=== PATIENT | female | born 1960 | race Caucasian/White ===

== ENCOUNTER 2020-08-11 07:31 | Outpatient (REF) | payer OTHER, SELFPAY | END 2020-08-11 07:32 | disposition home or self-care (01) | LOC: HO.LAB 07:31 | PROVIDERS: Visit Provider Internal Medicine | DX: Z20.828 Contact with and (suspected) exposure to other viral communicable diseases (principal) | CPT/HCPCS: 87635 ==

== ENCOUNTER 2020-09-04 08:11 | Outpatient (REF) | payer OTHER, SELFPAY | END 2020-09-04 08:12 | disposition home or self-care (01) | LOC: HO.LAB 08:11 | PROVIDERS: PCP Internal Medicine; Referring Provider Internal Medicine; Visit Provider Obstetrics & Gynecology | DX: R87.610 Atypical squamous cells of undetermined significance on cytologic smear of cervix (ASC-US) (principal); R87.810 Cervical high risk human papillomavirus (HPV) DNA test positive; Z90.710 Acquired absence of both cervix and uterus | CPT/HCPCS: 88300; 88305 ==

== ENCOUNTER → 2020-09-21 11:25 | Outpatient (BNVA) | payer OTHER, SELFPAY | PROVIDERS: Visit Provider Obstetrics & Gynecology | DX: R87.610 Atypical squamous cells of undetermined significance on cytologic smear of cervix (ASC-US) (principal); R87.810 Cervical high risk human papillomavirus (HPV) DNA test positive; E78.00 Pure hypercholesterolemia, unspecified; F17.210 Nicotine dependence, cigarettes, uncomplicated; Z90.710 Acquired absence of both cervix and uterus | CPT/HCPCS: Q3014 ==

== ENCOUNTER 2020-10-14 08:45 | Outpatient (REF) | payer OTHER, SELFPAY | END 2020-10-14 08:46 | disposition home or self-care (01) | LOC: HO.LAB 08:45 | PROVIDERS: PCP Internal Medicine; Visit Provider Internal Medicine | DX: Z20.828 Contact with and (suspected) exposure to other viral communicable diseases (principal) | CPT/HCPCS: C9803; U0003 ==

== ENCOUNTER 2020-10-21 15:17 | Outpatient (REF) | payer OTHER, SELFPAY ==
--- NOTE | 2020-10-21 15:21 | MM_ITS ---
EXAMINATION: MM SCREENING DIGITAL BREAST TOMOSYNTHESIS, BILATERAL CLINICAL INFORMATION: Screening. Asymptomatic. The lifetime risk of breast cancer based on the Tyrer-Cuzick Model is 11%. COMPARISON: Outside mammography: 01/09/2018, 08/25/2016, 05/22/2015 ([facility]) TECHNIQUE: Digital breast tomosynthesis is performed in both the craniocaudal and mediolateral oblique views along with computer-aided detection (CAD). Synthesized 2D images are generated from the tomosynthesis. Additional exaggerated right CC and left MLO views are provided. FINDINGS: The breasts are heterogeneously dense, which may obscure small masses (ACR BI-RADS breast composition Category c). Parenchymal pattern is similar to prior outside exams. There is fine fibronodular parenchymal pattern. The heterogeneously dense tissue is predominantly in the upper outer quadrants. There is no interval mass, architectural abnormality, developing density, or abnormal calcifications. Again, there is a biopsy clip marker right breast upper outer quadrant in area of chronic stable round parenchymal asymmetry on MLO view. No significant changes. MM/MM tomosynthesis screening BI IMPRESSION: No significant changes from prior outside exams. ASSESSMENT: BI-RADS 2: Benign RECOMMENDATION: Routine annual mammography screening. This patient's information was entered into a reminder system with a target due date for their next mammogram.
== END 2020-10-21 15:18 | disposition home or self-care (01) ==
LOC: HO.MAMMO 15:17
PROVIDERS: PCP Internal Medicine; Visit Provider Advanced Practice Midwife
DX: Z12.31 Encounter for screening mammogram for malignant neoplasm of breast (principal)
CPT/HCPCS: 77063; 77067

== ENCOUNTER 2021-04-06 07:48 | Outpatient (REF) | payer OTHER, SELFPAY ==
[2021-04-06 12:07] LABS: Alanine Aminotransferase 16 U/L (0-31); Albumin Level 4.2 g/dL (3.5-5.0); Alkaline Phosphatase 61 U/L (39-117); Anion Gap 13 (12-20); Aspartate Amino Transferase 18 U/L (5-31); Bilirubin Total 0.5 mg/dL (0.0-1.0); Blood Urea Nitrogen 18 mg/dL (9-16); Calcium 9.2 mg/dL (8.4-10.2); Carbon Dioxide 27 mmol/L (22-29); Chloride 109 mmol/L (96-108); Cholesterol 183 mg/dL; Estimated Glomerular Filt Rate > 60; Glucose Fasting 90 mg/dL (60-99); HDL Cholesterol 56 mg/dL; LDL Cholesterol Calculated 105 mg/dl; Potassium 4.6 mmol/L (3.3-5.1); Sodium 144 mmol/L (135-145); Total Protein 6.2 g/dL (6.5-8.0); Triglycerides 114 mg/dL
== END 2021-04-06 07:49 | disposition home or self-care (01) ==
LOC: HO.HMGCLDS 07:48
PROVIDERS: PCP Internal Medicine; Visit Provider Internal Medicine
DX: M79.671 Pain in right foot (principal); M79.672 Pain in left foot; E78.9 Disorder of lipoprotein metabolism, unspecified; Z72.0 Tobacco use; Z71.6 Tobacco abuse counseling
CPT/HCPCS: 36415; 80053; 80061; 82550

== ENCOUNTER 2021-05-03 10:08 | Outpatient (REF) | payer OTHER, SELFPAY | END 2021-05-03 10:09 | disposition home or self-care (01) | LOC: HO.HMGCLDS 10:08 | PROVIDERS: PCP Internal Medicine; Visit Provider Internal Medicine | DX: R74.8 Abnormal levels of other serum enzymes (principal) | CPT/HCPCS: 36415; 82550 ==

== ENCOUNTER 2021-06-23 14:32 | Outpatient (REF) | payer OTHER, SELFPAY ==
[2021-07-01 18:35] LABS: HPV 16 RNA NOT DETECTED (NOT DETECTED); HPV mRNA E6/E7 rflx Detected (Not Detected)
== END 2021-06-23 14:33 | disposition home or self-care (01) ==
LOC: HO.LAB 14:32
PROVIDERS: Visit Provider Advanced Practice Midwife
DX: Z01.411 Encounter for gynecological examination (general) (routine) with abnormal findings (principal); Z11.51 Encounter for screening for human papillomavirus (HPV); Z72.0 Tobacco use
CPT/HCPCS: 87624; 87625; 88142

== ENCOUNTER 2021-08-09 10:16 | Outpatient (REF) | payer OTHER, SELFPAY | END 2021-08-09 10:17 | disposition home or self-care (01) | LOC: HO.LAB 10:16 | PROVIDERS: Visit Provider Obstetrics & Gynecology | DX: B97.7 Papillomavirus as the cause of diseases classified elsewhere (principal) | CPT/HCPCS: 57454; 88305 ==

== ENCOUNTER 2021-08-18 10:40 | Outpatient (REF) | payer OTHER, SELFPAY | END 2021-08-18 10:41 | disposition home or self-care (01) | LOC: HO.LAB 10:40 | PROVIDERS: Visit Provider Obstetrics & Gynecology | DX: B97.7 Papillomavirus as the cause of diseases classified elsewhere (principal) | CPT/HCPCS: 88305; 99212 ==

== ENCOUNTER → 2021-09-01 10:31 | Outpatient (BNVA) | payer OTHER, SELFPAY | PROVIDERS: Visit Provider Obstetrics & Gynecology | DX: B97.7 Papillomavirus as the cause of diseases classified elsewhere (principal); E78.00 Pure hypercholesterolemia, unspecified; F17.200 Nicotine dependence, unspecified, uncomplicated; Z90.710 Acquired absence of both cervix and uterus; Z80.41 Family history of malignant neoplasm of ovary; Z80.0 Family history of malignant neoplasm of digestive organs; Z88.1 Allergy status to other antibiotic agents; Z88.0 Allergy status to penicillin | CPT/HCPCS: 99212 ==

== ENCOUNTER 2021-09-08 06:58 | Outpatient (REF) | payer OTHER, SELFPAY ==
[2021-09-08 12:00] LABS: Alanine Aminotransferase 17 U/L (0-31); Albumin Level 4.1 g/dL (3.5-5.0); Alkaline Phosphatase 56 U/L (39-117); Anion Gap 12 (12-20); Aspartate Amino Transferase 15 U/L (5-31); Bilirubin Total 0.4 mg/dL (0.0-1.0); Blood Urea Nitrogen 11 mg/dL (9-16); Calcium 9.2 mg/dL (8.4-10.2); Carbon Dioxide 28 mmol/L (22-29); Chloride 107 mmol/L (96-108); Cholesterol 252 mg/dL; Estimated Glomerular Filt Rate > 60; Glucose Fasting 93 mg/dL (60-99); HDL Cholesterol 43 mg/dL; LDL Cholesterol Calculated 177 mg/dl; Potassium 4.6 mmol/L (3.3-5.1); Sodium 142 mmol/L (135-145); Total Protein 6.1 g/dL (6.5-8.0); Triglycerides 162 mg/dL
[2021-09-10 13:15] LABS: Lyme Abs Screen <0.90 index
== END 2021-09-08 06:59 | disposition home or self-care (01) ==
LOC: HO.HMGCLDS 06:58
PROVIDERS: PCP Internal Medicine; Visit Provider Internal Medicine
DX: E78.9 Disorder of lipoprotein metabolism, unspecified (principal); M79.10 Myalgia, unspecified site; T14.8XXA Other injury of unspecified body region, initial encounter; W57.XXXA Bitten or stung by nonvenomous insect and other nonvenomous arthropods, initial encounter
CPT/HCPCS: 36415; 80053; 80061; 82550; 86617; 86618

== ENCOUNTER 2022-02-23 10:34 | Outpatient (REF) | payer OTHER, SELFPAY ==
--- NOTE | ~2022-02-23 | MM_ITS ---
EXAMINATION: MM SCREENING DIGITAL BREAST TOMOSYNTHESIS, BILATERAL CLINICAL INFORMATION: Screening. Asymptomatic. The lifetime risk of breast cancer based on the Tyrer-Cuzick Model is 10%. COMPARISON: Mammography: 10/21/2020; outside mammography 12/22/2017, 08/25/2016 ([facility]). TECHNIQUE: Digital breast tomosynthesis is performed in both the craniocaudal and mediolateral oblique views along with computer-aided detection (CAD). Synthesized 2D images are generated from the tomosynthesis. Additional exaggerated left CC view is provided. FINDINGS: The breasts are heterogeneously dense, which may obscure small masses (ACR BI-RADS breast composition Category c). Findings fibronodular parenchymal pattern is again present. Distribution of fibroglandular tissue is similar to prior studies. No significant mass or developing density. There is a biopsy clip marker on the right posterior upper outer quadrant overlying area of stable parenchymal asymmetry with mixed fibroglandular and fatty attenuation. There are no abnormal calcifications. The axilla and skin contours are unremarkable. MM/MM tomosynthesis screening BI IMPRESSION: No mammographic evidence of malignancy. ASSESSMENT: BI-RADS 2: Benign RECOMMENDATION: Routine annual mammography screening. This patient's information was entered into a reminder system with a target due date for their next mammogram.
== END 2022-02-23 10:35 | disposition home or self-care (01) ==
LOC: HO.MAMMO 10:34
PROVIDERS: Visit Provider Internal Medicine
DX: Z12.31 Encounter for screening mammogram for malignant neoplasm of breast (principal)
CPT/HCPCS: 77063; 77067

== ENCOUNTER 2022-03-28 07:56 | Outpatient (REF) | payer OTHER, SELFPAY ==
[2022-03-28 11:51] LABS: Alanine Aminotransferase 16 U/L (0-31); Albumin Level 4.3 g/dL (3.5-5.0); Alkaline Phosphatase 61 U/L (39-117); Aspartate Amino Transferase 16 U/L (5-31); Bilirubin Direct 0.2 mg/dL (0.0-0.5); Bilirubin Total 0.8 mg/dL (0.0-1.0); Cholesterol 190 mg/dL; HDL Cholesterol 54 mg/dL; LDL Cholesterol Calculated 111 mg/dl; Total Protein 6.3 g/dL (6.5-8.0); Triglycerides 128 mg/dL
== END 2022-03-28 07:57 | disposition home or self-care (01) ==
LOC: HO.HMGCLDS 07:56
PROVIDERS: PCP Internal Medicine; Visit Provider Internal Medicine
DX: E78.9 Disorder of lipoprotein metabolism, unspecified (principal)
CPT/HCPCS: 36415; 80061; 80076

== ENCOUNTER 2022-05-05 19:07 | Emergency (ER) | payer OTHER, SELFPAY ==
--- NOTE | ~2022-05-05 | XR_ITS ---
EXAMINATION: XR HAND, RIGHT CLINICAL INFORMATION: Finger pain COMPARISON: None TECHNIQUE: PA, lateral, and oblique views of the right hand. FINDINGS: Minimally displaced transverse extra articular fracture through the index finger distal phalanx seen best on the lateral projection. No additional fracture or dislocation. Joint spaces are maintained throughout the hand and wrist. No significant osteophyte formation or appreciable erosions. XR/XR hand RT min 3V IMPRESSION: 1. Minimally displaced extra-articular fracture of the second distal phalanx.
[2022-05-05 20:19] VITALS: BP 147/96; PULSE 81; RESP 15; TEMP 36.1; O2SAT 97; BMI 25.3
--- NOTE | 2022-05-05 23:42 | ED.EXTPRO ---
HPI - Extremity Problem General Chief complaint: Extremity Injury, Upper Stated complaint: right finger fx sent from [facility] Time Seen by Provider: 05/05/22 19:52 Source: patient Mode of arrival: ambulatory Limitations: no limitations History of Present Illness HPI Narrative: 61-year-old female presenting to the emergency department with right 2nd digit intermittent numbness, swelling, bruising, pain with movement status post getting her finger slammed in a car door. Patient was seen at [facility] where she was told that she had an open fracture and had to come in to the emergency department for further evaluation. She tells me she has a small cut on her finger. Unsure of tetanus status. This injury occurred at approximately 16:30 MD Complaint: joint pain Related Data Previous Rx's Medication Instructions Recorded coenzyme Q10 100 mg capsule 100 mg PO DAILY 90 days #90 caps 04/06/22 nicotine 21 mg/24 hr daily 1 patch transdermal DAILY 28 days 04/06/22 transdermal patch (Nicoderm CQ) #28 ea rosuvastatin 5 mg tablet 5 mg PO DAILY 90 days #90 tabs 04/06/22 ketoconazole 2 % topical cream 1 appl topical DAILY 30 days #60 04/19/22 grams Allergies Allergy/AdvReac Type Severity Reaction Status Date / Time Penicillins [PENICILLINS] Allergy Intermediate TONGUE Verified 04/06/22 12:37 SWELLING penicillin V Allergy Unknown anaphylaxis Verified 04/06/22 12:37 Review of Systems Review of Systems: Constitutional : No Fever, No Chills, Cardiovascular : No Chest Pain, No SOB Respiratory : No Dyspnea Gastrointestinal : No abdominal pain Musculoskeletal : + Joint Swelling Skin : No rash, No skin laceration Neuro : No Weakness, No Numbness Psych : No SI/HI Yes all other systems are reviewed and are negative [facility] Past Medical History Attestation statement: The following information was validated with the patient. 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 Oriented X3.? No acute distress.? Head: Normocephalic, atraumatic, no step-offs or deformities Eyes: Pupils equal, round and reactive to light.? CVS: Normal heart rate and rhythm.? Pulses normal.? Respiratory: No respiratory distress.? Breath sounds normal.? Abdomen: Soft and nontender.? Skin: Skin warm and dry.? Normal skin color.? Normal skin turgor.? Extremities: No lower extremity edema.? No calf ttp. 5/5 strength to bilateral upper and lower extremities + ecchymosis noted to the right 2nd digit, small laceration superficial noted to the distal aspect of 2nd digit on the dorsal part. Capillary refill less than 2 seconds. Sensory intact however diminished to distal aspect of 2nd right digit. Normal strength to finger. Finger is swollen. 2+ radial pulses equal bilateral. No wrist drop. Back: No midline tenderness, no C-spine tenderness, full range of motion, no CVA tenderness bilaterally Neuro: Oriented X 3.? No motor deficit.? No sensory deficit. CN 2-12 intact Course Reevaluation(s) Reevaluation #1: X-ray of the hand with minimally displaced extra-articular fracture of the 2nd distal phalanx, patient was placed in a finger splint, given Toradol for pain. Was advised to follow-up with orthopedics and/or Dr. Lozano (Hand) I advised her to return with new or worsening symptoms. 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 I advised her that she should take this finger splint off at night, and put it back on during the day. I advised her to rest, ice, compress and elevate extremity. I also advised her to take ibuprofen every 6 hours, Tylenol every 4 as needed for pain or discomfort. Time: 23:47 MDM - Extremity (Nontraumatic) MDM Narrative Medical decision making narrative: [id number] 61-year-old female presenting with pain, swelling and bruising to the right 2nd digit after slamming her finger in a car door. Was seen at [facility] and was told that she had an open fracture needed further evaluation. Physical examination significant for ecchymosis noted to the right 2nd digit, small laceration superficial noted to the distal aspect of 2nd digit on the dorsal part. Capillary refill less than 2 seconds. Sensory intact however diminished to distal aspect of 2nd right digit. Normal strength to finger. Finger is swollen. 2+ radial pulses equal bilateral. No wrist drop. Likely fracture and/or dislocation. Plan at this time is x-ray Medical Records Attestation: I reviewed the patient's medical records. Lab Data Attestation: I reviewed the patient's lab results. Discharge Plan Discharge Clinical Impression: Fracture of phalanx of finger Patient Disposition: Home, Self-Care Instructions: Finger Fracture (ED) Additional Instructions: Take your medications as prescribed. If you were prescribed antibiotics today, it is important that you take your medication to their entirety, do not skip any doses, do not finish them early. Follow-up with your primary care provider this week. Return to the emergency department with new or worsening symptoms. Such as fevers, chills, chest pain, shortness of breath, nausea, vomiting, dizziness, headache, vision changes, lethargy In case of emergency call 911 Please take finger splint off at night. Rest, ice, compress and elevate this extremity. You can take ibuprofen every 6 hours, Tylenol every 4 as needed for pain or discomfort FINDINGS: Minimally displaced transverse extra articular fracture through the index finger distal phalanx seen best on the lateral projection. No additional fracture or dislocation. Joint spaces are maintained throughout the hand and wrist. No significant osteophyte formation or appreciable erosions. XR/XR hand RT min 3V IMPRESSION: 1. Minimally displaced extra-articular fracture of the second distal phalanx. Prescriptions: No Action ketoconazole 2 % cream 1 appl topical DAILY 30 Days Qty: 60 0RF coenzyme Q10 100 mg capsule 100 mg PO DAILY 90 Days Qty: 90 0RF rosuvastatin 5 mg tablet 5 mg PO DAILY 90 Days Qty: 90 0RF nicotine [Nicoderm CQ] 21 mg/24 hr patch 24 hour 1 patch transdermal DAILY 28 Days Qty: 28 0RF Referrals: [facility] [Provider Group] - 1 week Filomena Lozano MD [Physician] - 2 days Stand Alone Forms: Work/School Release
[2022-05-06] MEDS: Ketorolac Tromethamine 15 MG/ML VIAL 30 MG IM (00:15)
[2022-05-06] MEDS: Diphth,Pertus(ACell),Tet Adult 0.5 ML SYRINGE IM (00:16)
== END 2022-05-06 00:38 | disposition home or self-care (01) ==
PROVIDERS: Emergency Provider Emergency Medicine; PCP Internal Medicine
DX: S62.600A Fracture of unspecified phalanx of right index finger, initial encounter for closed fracture (principal); S60.410A Abrasion of right index finger, initial encounter; Y29.XXXA Contact with blunt object, undetermined intent, initial encounter; Y93.9 Activity, unspecified; Y92.810 Car as the place of occurrence of the external cause; Y99.9 Unspecified external cause status; F17.210 Nicotine dependence, cigarettes, uncomplicated; Z71.6 Tobacco abuse counseling; Z79.899 Other long term (current) drug therapy
CPT/HCPCS: 29130; 73130; 90471; 90715; 96372; 99283; 99284; J1885

== ENCOUNTER 2022-05-09 12:18 | Outpatient (REF) | payer OTHER, SELFPAY ==
--- NOTE | ~2022-05-09 | XR_ITS ---
EXAMINATION: XR HAND, RIGHT CLINICAL INFORMATION: Right hand pain. COMPARISON: 05/05/2022. TECHNIQUE: PA, lateral, and oblique views of the right hand. FINDINGS: There has been no change in alignment or appearance of intra-articular fracture involving the base of the 2nd distal phalanx. There remains soft tissue swelling. No radiopaque foreign body is seen. Small calcification about the ulnar aspect of the 3rd distal phalanx is seen likely representing sequela of previous injury. XR/XR hand RT min 3V IMPRESSION: No change in appearance of nondisplaced fracture base of the 2nd distal phalanx.
== END 2022-05-09 12:19 | disposition home or self-care (01) ==
LOC: HO.HOSX 12:18
PROVIDERS: Visit Provider Physician Assistant
DX: M79.641 Pain in right hand (principal); S62.600A Fracture of unspecified phalanx of right index finger, initial encounter for closed fracture; W22.09XA Striking against other stationary object, initial encounter; Y93.9 Activity, unspecified; Y92.89 Other specified places as the place of occurrence of the external cause; Y99.8 Other external cause status
CPT/HCPCS: 73130; 99202

== ENCOUNTER → 2022-05-23 10:39 | Outpatient (BNVA) | payer OTHER, SELFPAY | PROVIDERS: PCP Internal Medicine; Visit Provider Physician Assistant | DX: M77.12 Lateral epicondylitis, left elbow (principal) | CPT/HCPCS: 20551; 99212; J1020 ==

== ENCOUNTER 2022-08-30 11:27 | Outpatient (REF) | payer OTHER, SELFPAY ==
[2022-09-07 06:12] LABS: HPV 16 RNA NOT DETECTED (NOT DETECTED); HPV mRNA E6/E7 rflx Detected (Not Detected)
== END 2022-08-30 11:28 | disposition home or self-care (01) ==
LOC: HO.LNP 11:27
PROVIDERS: Visit Provider Advanced Practice Midwife
DX: Z01.419 Encounter for gynecological examination (general) (routine) without abnormal findings (principal); Z20.2 Contact with and (suspected) exposure to infections with a predominantly sexual mode of transmission
CPT/HCPCS: 86704; 86780; 86803; 87389; 87491; 87591; 87624; 87625; 88142

== ENCOUNTER 2022-08-30 11:36 | Outpatient (REF) | payer OTHER, SELFPAY ==
[2022-08-30 17:10] LABS: CT PCR NOT DETECTED (Not Detect.); NG PCR NOT DETECTED (Not Detect.)
[2022-08-31 05:49] LABS: Syphilis Screen Nonreactive (Nonreactive)
[2022-08-31 05:56] LABS: HBc Num1 0.06 S/CO (0.00-0.79); HIV AB/AG Nonreactive (Nonreactive); HIV Num 1 0.06 S/CO (0.00-0.99); Hepatitis B Core Antibody Nonreactive (Nonreactive); ~Hepatitis C Antibody Nonreactive (Nonreactive)
== END 2022-08-30 11:37 | disposition home or self-care (01) ==
LOC: HO.LAB 11:36
PROVIDERS: PCP Internal Medicine; Visit Provider Advanced Practice Midwife
DX: Z13.89 Encounter for screening for other disorder (principal)
CPT/HCPCS: 86704; 86780; 86803; 87389; 87491; 87591

== ENCOUNTER 2022-12-08 08:27 | Outpatient (REF) | payer OTHER, SELFPAY ==
[2022-12-08 12:10] LABS: Alanine Aminotransferase 20 U/L (0-31); Albumin Level 4.2 g/dL (3.5-5.0); Alkaline Phosphatase 57 U/L (39-117); Anion Gap 13 (12-20); Aspartate Amino Transferase 15 U/L (5-31); Bilirubin Total 0.6 mg/dL (0.0-1.0); Blood Urea Nitrogen 15 mg/dL (9-16); Calcium 9.3 mg/dL (8.4-10.2); Carbon Dioxide 26 mmol/L (22-29); Chloride 110 mmol/L (96-108); Cholesterol 191 mg/dL; Estimated Glomerular Filt Rate > 60; Glucose Fasting 93 mg/dL (60-99); HDL Cholesterol 56 mg/dL; LDL Cholesterol Calculated 110 mg/dl; Potassium 4.4 mmol/L (3.3-5.1); Sodium 145 mmol/L (135-145); Total Protein 6.2 g/dL (6.5-8.0); Triglycerides 127 mg/dL
== END 2022-12-08 08:28 | disposition home or self-care (01) ==
LOC: HO.HMGCLDS 08:27
PROVIDERS: PCP Internal Medicine; Visit Provider Internal Medicine
DX: E78.9 Disorder of lipoprotein metabolism, unspecified (principal); M79.10 Myalgia, unspecified site; F17.200 Nicotine dependence, unspecified, uncomplicated; Z71.6 Tobacco abuse counseling
CPT/HCPCS: 36415; 80053; 80061; 82550

== ENCOUNTER 2022-12-15 11:17 | Outpatient (REF) | payer OTHER, SELFPAY | END 2022-12-15 11:18 | disposition home or self-care (01) | LOC: HO.LNP 11:17 | PROVIDERS: PCP Internal Medicine; Visit Provider Obstetrics & Gynecology | DX: R87.610 Atypical squamous cells of undetermined significance on cytologic smear of cervix (ASC-US) (principal); R87.810 Cervical high risk human papillomavirus (HPV) DNA test positive | CPT/HCPCS: 57454; 88305 ==

== ENCOUNTER → 2022-12-29 14:08 | Outpatient (BNVA) | payer OTHER, SELFPAY | PROVIDERS: Visit Provider Obstetrics & Gynecology | DX: R87.610 Atypical squamous cells of undetermined significance on cytologic smear of cervix (ASC-US) (principal); R87.810 Cervical high risk human papillomavirus (HPV) DNA test positive | CPT/HCPCS: 99212 ==

== ENCOUNTER 2023-02-28 10:33 | Outpatient (REF) | payer OTHER, SELFPAY ==
--- NOTE | ~2023-02-28 | MM_ITS ---
EXAMINATION: MM SCREENING DIGITAL BREAST TOMOSYNTHESIS, BILATERAL CLINICAL INFORMATION: Screening. Asymptomatic. The lifetime risk of breast cancer based on the Tyrer-Cuzick Model is 10%. COMPARISON: Mammography: 02/23/2022, 10/21/2020, outside exam 12/22/2017 ([facility]) TECHNIQUE: Digital breast tomosynthesis is performed in both the craniocaudal and mediolateral oblique views along with computer-aided detection (CAD). Synthesized 2D images are generated from the tomosynthesis. FINDINGS: The breasts are heterogeneously dense, which may obscure small masses (ACR BI-RADS breast composition Category c). Breast tissue composition borders on average fibroglandular. Scattered parenchymal asymmetries in fibronodular parenchymal pattern is similar to prior exams. No developing density or architectural abnormality. There are no significant masses, abnormal calcifications, or other abnormalities. There is a biopsy clip marker again seen posterior upper outer right breast. The axilla are unremarkable. MM/MM tomosynthesis screening BI IMPRESSION: No mammographic evidence of malignancy. ASSESSMENT: BI-RADS 2: Benign RECOMMENDATION: Routine annual mammography screening. This patient's information was entered into a reminder system with a target due date for their next mammogram.
== END 2023-02-28 10:34 | disposition home or self-care (01) ==
LOC: HO.MAMMO 10:33
PROVIDERS: PCP Internal Medicine; Visit Provider Advanced Practice Midwife
DX: Z12.31 Encounter for screening mammogram for malignant neoplasm of breast (principal)
CPT/HCPCS: 77063; 77067

== ENCOUNTER 2023-04-21 08:53 | Outpatient (REF) | payer OTHER, SELFPAY ==
[2023-04-21 12:15] LABS: Alanine Aminotransferase 18 U/L (0-31); Albumin Level 4.2 g/dL (3.5-5.0); Alkaline Phosphatase 63 U/L (39-117); Anion Gap 13 (12-20); Aspartate Amino Transferase 19 U/L (5-31); Bilirubin Total 0.8 mg/dL (0.0-1.0); Blood Urea Nitrogen 16 mg/dL (9-16); Calcium 9.7 mg/dL (8.4-10.2); Carbon Dioxide 25 mmol/L (22-29); Chloride 110 mmol/L (96-108); Estimated Glomerular Filt Rate > 60; Glucose Random 95 mg/dL (60-115); Potassium 4.5 mmol/L (3.3-5.1); Sodium 143 mmol/L (135-145); Total Protein 6.6 g/dL (6.5-8.0)
[2023-04-21 12:34] LABS: Vitamin B12 264 pg/mL (200-900)
[2023-04-22 09:14] LABS: LDL Cholesterol Direct 88 mg/dL (<100)
== END 2023-04-21 08:54 | disposition home or self-care (01) ==
LOC: HO.HMGCLDS 08:53
PROVIDERS: PCP Internal Medicine; Visit Provider Internal Medicine
DX: Z00.01 Encounter for general adult medical examination with abnormal findings (principal); E78.9 Disorder of lipoprotein metabolism, unspecified; F33.9 Major depressive disorder, recurrent, unspecified; Z72.0 Tobacco use
CPT/HCPCS: 36415; 80053; 82550; 82607; 83721

== ENCOUNTER 2023-08-14 11:12 | Outpatient (AMB) | payer OTHER, SELFPAY ==
--- NOTE | 2023-08-14 11:16 | A.OFFVIS_ITS ---
Intake Vital Signs 08/14/23 11:18 Height 5 ft 3 in Weight 145 lb BMI 25.7 BP 137/64 Blood Pressure Location Lt brachial Position Sitting Pulse 75 Intake Visit Reasons: Colonoscopy Screening Intake Note: Patient 3rd pre colonoscopy screening, last 2 was in [place], [place] Patient cc: constant abdominal pain with constipation. Denies any other GI issues. 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 Accompanied by: Self / Same As Patient Allergies penicillin V Allergy (Unknown, Verified 08/14/23 11:16) anaphylaxis Medication List - Last Reconciled 08/14/23 by Tayler Romano PA-C bisacodyl (Dulcolax (bisacodyl)) 20 mg (4 x 5 mg) PO ONCE 1 day calcium polycarbophil (Fiber Laxative (calcium polycarbophil)) 1,250 mg (2 x 625 mg) PO DAILY 30 days coenzyme Q10 100 mg PO DAILY 90 days cyanocobalamin (vitamin B-12) 1,000 mcg PO DAILY 90 days docusate sodium (Colace) 200 mg (2 x 100 mg) PO BEDTIME PRN polyethylene glycol 3350 (Miralax) 238 grams PO ONCE PRN 1 day polyethylene glycol 3350 (Miralax) 17 grams PO DAILY 30 days rosuvastatin 5 mg PO DAILY 90 days HPI HPI Comments History of Present Illness Details A 62 y/o female family history colon cancer- sister in her late 50s- She smokes tob/ Mild pelvic/abdominal tenderness with constipation-she has been seen by fuel assembler she has upcoming appointment for repeat annual exam Bowels seem a bit copnstipated- She has a history of UTIs, No urinary symptoms No respiratory- or cardiac No nausea, vomiting, hematemesis, hematochezia fever or chills PFSH Medical History High cholesterol Surgical History H/O: hysterectomy Family History Maternal Aunt Breast CA Paternal Grandmother Ovarian ca Sister Colon cancer, Onset Age: 59 Other Mental health disorder Substance use disorder Social History Household Members: None Housing: House Alcohol intake: current Alcohol intake frequency: a few times a week Patient Tobacco Use Status: Current everyday Tobacco user Cigarette Packs Per Day: 1 Years Smoked: 40 e-Cigarette/Vaping Use: Never Used service: No Current occupational status: employed 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 Current occupational exposures/hazards: No Sexual orientation: Straight/Heterosexual Gender identity: Female Cognitive needs: No Hearing needs: No Vision needs: Yes Review of Systems Const All systems reviewed & are unremarkable except as noted in HPI and below Card Denies chest pain and Denies dyspnea Resp Denies dyspnea GI Denies abdominal pain, Reports bloating, Reports constipation, Denies nausea and Denies vomiting Reports no additional complaints, Denies difficulty voiding, Denies dysuria and Denies urinary urgency Physical Exam Vital Signs: Last Vital Signs Pulse 75 08/14/23 11:18 BP 137/64 08/14/23 11:18 BMI result Body Mass Index 25.7 Const General: cooperative, healthy appearing, comfortable and no acute distress Orientation/consciousness: patient oriented x3 Limitations: no limitations Eyes Sclerae: sclerae normal Resp Effort & Inspection: normal respiratory effort and able to speak in complete sentences Auscultation: clear to auscultation bilaterally, no rales, no rhonchi and no wheezes Cardio Rate: regular rate Rhythm: regular rhythm Heart sounds: S1 normal heart sound present and S2 normal heart sound present GI Palpation (GI): Soft to palpation and nontender Auscultation: normal bowel sounds Skin General skin exam: no rashes or lesions noted Neuro General: patient oriented x3 Extrem General: Yes full ROM Psych Appearance: grossly normal and well kempt Mental Status: mental status grossly normal Speech and movement: Normal speech and movement present and Clear speech present Affect: normal affect Attitude: cooperative Thought process: Normal thought process present Thought content: Normal thought content present Insight: Good insight present (Psych) Judgement: Good judgement present (Psych) Assessment & Plan Assessment & Plan (1) Family history of colon cancer: Code(s): Z80.0 - Family history of malignant neoplasm of digestive organs Plan: colon labs urine u/s (2) Abdominal pain: Comment: vague resolved after BM Code(s): R10.9 - Unspecified abdominal pain Plan Colonoscopy MiraLax Gatorade prep Will update labs Abdominal ultrasound-assess liver and gallbladder (normal liver enzymes) Consistent bowel regimen Maintain high-fiber diet Orders: Orders Colonoscopy - GI Use Only Today Z80.0 - Family history of malignant neoplasm of digestive organs Comprehensive Met. Panel Today K58.9 - Irritable bowel syndrome without diarrhea Thyroid Stimulating Hormone Today R19.8 - Other specified symptoms and signs involving the digestive system and abdomen UA and rflx microscopic Today R10.9 - Unspecified abdominal pain US abdomen complete Today R10.9 - Unspecified abdominal pain Complete Blood Count Auto Diff Today R10.9 - Unspecified abdominal pain, Z80.0 - Family history of malignant neoplasm of digestive organs Medications: New calcium polycarbophil (Fiber Laxative (calcium polycarbophil)) 1,250 mg (2 x 625 mg) PO DAILY 30 days 60 tabs 3RF docusate sodium (Colace) 200 mg (2 x 100 mg) PO BEDTIME PRN 60 caps 5RF constipation bisacodyl (Dulcolax (bisacodyl)) Day before procedure, prep day Take 4 tablets by mouth upon awakening followed by large glass of water 20 mg (4 x 5 mg) PO ONCE 1 day 4 tabs 0RF colonoscopy prep Z12.11 - Encounter for screening for malignant neoplasm of colon polyethylene glycol 3350 (Miralax) Take as directed by mouth the day before your procedure. 238 grams PO ONCE 1 day PRN 238 grams 0RF laxative effect polyethylene glycol 3350 (Miralax) 17 grams PO DAILY 30 days 510 grams 6RF Patient Instructions: A 62 y/o F family history colon cancer -vague periumbilical discomfort (as described) relieved after BM Colonoscopy MiraLax Gatorade prep Will update labs Abdominal ultrasound-assess liver and gallbladder (normal liver enzymes) Consistent bowel regimen Maintain high-fiber diet Coding Level of Care Code New Pt Level 3 (19135) Diagnoses Family history of colon cancer Z80.0 Abdominal pain R10.9 Time Spent (min) 30
[2023-08-14 11:18] VITALS: BP 137/64; PULSE 75; BMI 25.7
== END 2023-08-14 12:59 | disposition home or self-care (01) ==
PROVIDERS: PCP Internal Medicine; Visit Provider Physician Assistant
DX: Z80.0 Family history of malignant neoplasm of digestive organs (principal); R10.9 Unspecified abdominal pain
CPT/HCPCS: 99203

== ENCOUNTER → 2023-08-14 11:12 | Outpatient (BNVA) | payer OTHER, SELFPAY | PROVIDERS: PCP Internal Medicine; Visit Provider Physician Assistant ==

== ENCOUNTER 2023-09-28 09:39 | Outpatient (REF) | payer OTHER, SELFPAY ==
[2023-10-05 02:38] LABS: HPV 16 RNA NOT DETECTED (NOT DETECTED); HPV mRNA E6/E7 rflx Detected (Not Detected)
== END 2023-09-28 09:40 | disposition home or self-care (01) ==
LOC: HO.LNP 09:39
PROVIDERS: PCP Internal Medicine; Visit Provider Advanced Practice Midwife
DX: Z01.419 Encounter for gynecological examination (general) (routine) without abnormal findings (principal); Z11.51 Encounter for screening for human papillomavirus (HPV)
CPT/HCPCS: 87624; 87625; 88142

== ENCOUNTER 2023-09-28 09:39 | Outpatient (AMB) | payer OTHER, SELFPAY ==
--- NOTE | 2023-09-28 09:41 | MHC.OFFVIS ---
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 She is doing well with no concerns. Attempting to eat a healthy diet with calcium and vitamin D and stays active with exercise. Currently not sexually active. Denies any vaginal dryness or irritation. Hx ASCUS/HPV+. Last mammogram; 02/2023. Colonoscopy is being booked. Denies any family history of breast, ovarian or colon cancer. [facility] Medical History (Updated 09/28/23 @ 09:47 by RANDY Marie) Major depression, recurrent High cholesterol Surgical History H/O: hysterectomy Family History (Updated 09/28/23 @ 09:48 by RANDY Marie) Maternal Aunt Breast CA Paternal Grandmother Ovarian ca Sister Colon cancer, Onset Age: 59 Sister Lung cancer Other Mental health disorder Substance use disorder Social History Household Members: None Housing: House Alcohol intake: current Alcohol intake frequency: a few times a week Patient Tobacco Use Status: Current everyday Tobacco user Cigarette Packs Per Day: 1 Years Smoked: 40 e-Cigarette/Vaping Use: Never Used service: No Current occupational status: employed 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 Current occupational exposures/hazards: No Sexual orientation: Straight/Heterosexual Gender identity: Female Cognitive needs: No Hearing needs: No Vision needs: Yes Female Reproductive History Menstrual Menopause type: surgical Total pregnancies: 2 Number of Living Children: 0 Ab induced: 2 Date of last pap smear: 08/30/22 (ascus +hpv 12/15 colpo) History of abnormal pap smear: Yes (06/11 ascus +hpv / colpo 07/13 +hpv 08/12 colpo/ecc) Date of Mammogram: 02/28/23 ([facility] 2) Review of Systems Const All systems reviewed & are unremarkable except as noted in HPI and below Reports as per HPI Eyes Reports no additional complaints ENT Reports no additional complaints Card Reports no additional complaints Resp Reports no additional complaints GI Reports as per HPI and Reports no additional complaints Reports as per HPI Musc Reports no additional complaints Skin/Breast Reports as per HPI Neuro Reports no additional complaints Psych Reports no additional complaints Endo Reports no additional complaints Ángel/Lymph Reports no additional complaints Aller/Immun Reports no additional complaints Physical Exam Vital Signs: Last Vital Signs BP 110/68 09/28/23 09:43 BMI result Body Mass Index 26.0 Const General: cooperative, healthy appearing, no acute distress, well developed and alert Orientation/consciousness: patient oriented x3 HEENT Head: Yes normal to inspection Eyes General: appearance normal, both eyes and all related structures Neck Neck: Yes normal visual inspection Thyroid: Thyroid normal Chest Chest palpation & inspection: normal inspection of the chest and other (no puckering, dimpling, peau de orange, retraction, discharge, masses) Breast/axilla inspection: normal inspection of the breasts Breast/axilla palpation: normal palpation of the breasts Resp Effort & Inspection: normal respiratory effort GI Inspection: Yes normal to inspection Palpation (GI): Soft to palpation Rectal Exam - Female: deferred General: Yes bladder normal to palpation External Female Exam: normal external appearance and normal appearance of the urethra Speculum Exam - Vagina: normal appearance of the vagina, normal palpation and normal vaginal discharge Speculum Exam - Cervix: normal appearance of the cervix and normal palpation Bimanual exam- vagina & uterus: normal bimanual exam, normal palpation, uterine size normal, bladder normal to palpation, normal palpation and non-tender Bimanual Exam- Adnexa, other: no masses Skin General skin exam: no rashes or lesions noted Rashes: no rashes Neuro General: patient oriented x3 Cognition (Neuro): normal cognition Extrem General: Yes normal to inspection Psych Attitude: cooperative Thought process: Normal thought process present Assessment & Plan Assessment & Plan (1) Encounter for well woman exam with routine gynecological exam: Code(s): Z01.419 - Encounter for gynecological examination (general) (routine) without abnormal findings Plan Discussed: Current recommendations for pap smears per ASCCP guidelines. Breast awareness, periodic self breast exams and yearly mammogram. Maintain a healthy lifestyle, well balanced diet including Calcium 1,200 mg and Vitamin D 600 IU daily, and routine exercise. Use of condoms for STI if indicated. Discussed HPV. Contact the office with any postmenopausal bleeding. All of her questions and concerns were addressed to the best of my ability. RTO in 1 year for annual industrial green systems designer exam. Orders: Orders MM tomosynthesis screening BI Today Z12.31 - Encounter for screening mammogram for malignant neoplasm of breast Coding Level of Care Code Est Pt Prev Care 40-64y(82388) Diagnoses Encounter for well woman exam with routine gynecological exam Z01.419
[2023-09-28 09:43] VITALS: BP 110/68; BMI 26.0
== END 2023-09-28 10:07 | disposition home or self-care (01) ==
PROVIDERS: PCP Internal Medicine; Visit Provider Advanced Practice Midwife
DX: Z01.419 Encounter for gynecological examination (general) (routine) without abnormal findings (principal)
CPT/HCPCS: 99396

== ENCOUNTER 2023-12-28 10:37 | Outpatient (AMB) | payer OTHER, SELFPAY ==
--- NOTE | 2023-12-28 12:10 | MHC.OFFWIV ---
Intake Vital Signs 12/28/23 12:11 Weight 147 lb BP 128/80 Blood Pressure Location Rt brachial Position Sitting Pulse 61 Pulse Source Pulse Oximeter Temp 98 F Temp Source Oral Pulse Oximetry (%) 94 Oxygen Delivery Method Room Air Intake Visit Reasons: EST/sinus pressure (lobby) Intake Note: Patient here for sinus infection that started end of October which has not improved or worsened. Patient Tobacco Use Status: Current everyday Tobacco user Accompanied by: Self / Same As Patient Allergies penicillin V Allergy (Unknown, Verified 12/28/23 12:12) anaphylaxis Do you need a note to return to daycare/school/sports/work: No HPI EST/sinus pressure (lobby) HPI Details This is a 63-year-old female patient who presents today with a nearly 2 month history of sinus pressure. States that she had COVID back in October, and though recovered from that, she had persistent sinus pressure and nasal congestion. She has been using Advil sinus [id number], nasal spray, and a Neti pot at home without significant relief. She continues to have facial pressure and headaches. Denies any fever or chills. Denies any respiratory symptoms, shortness of breath, cough, or GI symptoms. [facility] Medical History Major depression, recurrent High cholesterol Surgical History H/O: hysterectomy Family History Maternal Aunt Breast CA Paternal Grandmother Ovarian ca Sister Colon cancer, Onset Age: 59 Sister Lung cancer Other Mental health disorder Substance use disorder Social History Household Members: None Housing: House Alcohol intake: current Alcohol intake frequency: a few times a week Patient Tobacco Use Status: Current everyday Tobacco user Cigarette Packs Per Day: 1 Years Smoked: 40 e-Cigarette/Vaping Use: Never Used service: No Current occupational status: employed 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 Current occupational exposures/hazards: No Sexual orientation: Straight/Heterosexual Gender identity: Female Cognitive needs: No Hearing needs: No Vision needs: Yes Review of Systems Const All systems reviewed & are unremarkable except as noted in HPI and below Physical Exam Vital Signs: Last Vital Signs Temp 98 F 12/28/23 12:11 Pulse 61 12/28/23 12:11 BP 128/80 12/28/23 12:11 Pulse Ox 94 12/28/23 12:11 Oxygen Delivery Method Room Air 12/28/23 12:11 Const General: cooperative, comfortable and no acute distress Nutritional Appearance: average body habitus HEENT Head: Yes normal to inspection and Yes normocephalic Ears: hearing grossly normal bilaterally and external ears normal General nose exam: Normal external nose present and Nasal discharge present mucoid Face and sinus: Yes sinus tenderness (maxillary and frontal) Mouth: Normal oral and palatal mucosa present Throat: Yes posterior oropharynx normal Neck Neck: Yes no lymphadenopathy Resp Effort & Inspection: normal respiratory effort and able to speak in complete sentences Auscultation: clear to auscultation bilaterally Cardio Palpation: normal PMI Rate: regular rate Rhythm: regular rhythm Skin General skin exam: no rashes or lesions noted Extrem General: Yes capillary refill normal and Yes no clubbing, cyanosis or edema Psych Appearance: grossly normal Mental Status: mental status grossly normal Speech and movement: Normal speech and movement present Assessment & Plan Assessment & Plan (1) Acute sinusitis: Code(s): J01.90 - Acute sinusitis, unspecified Qualifiers: Sinusitis location: maxillary Recurrence: non-recurrent Qualified Code(s): J01.00 - Acute maxillary sinusitis, unspecified Plan: Will start on azithromycin for nearly 2 month history of sinusitis. We reviewed indications, use, possible side effects of medication. She may continue to utilize conservative measures with Advil, nasal spray, and Neti pot as needed. If she does not improve with treatment, or if symptoms worsen/new symptoms develop, she can certainly return to the clinic for further evaluation. She verbalizes understanding and agrees to plan. Medications: New azithromycin For 250 mg dose pack: take 500 mg today (day 1), then 250 mg for 4 days (days 2-5) PO 6 tabs 0RF J01.90 - Acute sinusitis, unspecified Coding Level of Care Code Est Pt Level 3 (36106) Diagnoses Acute non-recurrent maxillary sinusitis J01.00 Sinusitis location: maxillary Recurrence: non-recurrent
[2023-12-28 12:11] VITALS: BP 128/80; PULSE 61; TEMP 36.6; O2SAT 94
== END 2023-12-28 12:45 | disposition home or self-care (01) ==
PROVIDERS: PCP Internal Medicine; Visit Provider Nurse Practitioner Family
DX: J01.00 Acute maxillary sinusitis, unspecified (principal)
CPT/HCPCS: 99213

== ENCOUNTER 2024-03-04 09:54 | Outpatient (AMB) | payer OTHER, SELFPAY ==
--- NOTE | 2024-03-04 09:57 | A.OFFVIS_ITS ---
Vital Signs 03/04/24 10:03 Height 5 ft 3 in Weight 145 lb 8.081 oz BMI 25.8 BP 116/74 Intake Visit Reasons: Colposcopy Civil Rights Investigator Required: No Information Interpreted: non-clinical & clinical Office Services Associate: Office Services Associate Present (Lexi Villar RANDY) Accompanied by: Self / Same As Patient Allergies penicillin V Allergy (Unknown, Verified 03/04/24 10:04) anaphylaxis Post menopausal: Yes HPI Comments Details: Presenting referred from Gianna Carlson can not see him in regarding Pap smear negative/HPV E6/E7 positive The patient has following abnormal Paps over the last few years: 09/11 ascus HPV E6/E7 positive colpo negative ECC no endocervical tissue 07/13 Pap negative/HPV E6/E7 positive colpo negative, ECC no endocervical tissue 09/13 ascus/HPV E6/E7 positive, colpo biopsy negative, ECC negative 10/14 Pap smear negative/HPV E6 E7 positive PFSH Medical History HPV in female Major depression, recurrent High cholesterol Surgical History H/O: hysterectomy Family History Maternal Aunt Breast CA Paternal Grandmother Ovarian ca Sister Colon cancer, Onset Age: 59 Sister Lung cancer Other Mental health disorder Substance use disorder Social History Household Members: None Housing: House Alcohol intake: current Alcohol intake frequency: a few times a week Patient Tobacco Use Status: Current everyday Tobacco user Cigarette Packs Per Day: 1 Years Smoked: 40 e-Cigarette/Vaping Use: Never Used service: No Current occupational status: employed 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 Current occupational exposures/hazards: No Sexual orientation: Straight/Heterosexual Gender identity: Female Cognitive needs: No Hearing needs: No Vision needs: Yes Review of Systems Const All systems reviewed & are unremarkable except as noted in HPI and below Reports as per HPI and Reports no additional complaints GI Reports no additional complaints Reports no additional complaints Physical Exam Vital Signs: Last Vital Signs BP 116/74 03/04/24 10:03 BMI result Body Mass Index 25.8 Assessment & Plan Assessment & Plan (1) HPV in female: Comment: 09/11 ascus HPV E6/E7 positive colpo negative ECC no endocervical tissue 07/13 Pap negative/HPV E6/E7 positive colpo negative, ECC no endocervical tissue 09/13 ascus/HPV E6/E7 positive, colpo biopsy negative, ECC negative 10/14 Pap smear negative/HPV E6 E7 positive Code(s): B97.7 - Papillomavirus as the cause of diseases classified elsewhere Category: Medical Plan: Discussed with the patient the result of her Pap smear/HPV E6/E7 positive, its significance, risk of progression, persistence, and regression. the false positive/negative rate of a Pap smear as a screening test in detecting cervical cancer and the indication for a diagnostic test -colposcopy, biopsy, endocervical curettage. Instructions given the patient to schedule colposcopy/biopsy/ECC in the coming 2 weeks. The patient verbalized understanding and agreed with the plan, all questions answered. Coding Level of Care Code Est Pt Level 3 (32155) Diagnoses HPV in female B97.7
[2024-03-04 10:03] VITALS: BP 116/74; BMI 25.8
== END 2024-03-04 10:24 | disposition home or self-care (01) ==
PROVIDERS: PCP Internal Medicine; Visit Provider Obstetrics & Gynecology
DX: R87.810 Cervical high risk human papillomavirus (HPV) DNA test positive (principal)
CPT/HCPCS: 99213

== ENCOUNTER → 2024-03-04 09:54 | Outpatient (BNVA) | payer OTHER, SELFPAY | PROVIDERS: PCP Internal Medicine; Visit Provider Obstetrics & Gynecology | DX: R87.810 Cervical high risk human papillomavirus (HPV) DNA test positive (principal) | CPT/HCPCS: 99212 ==

== ENCOUNTER 2024-03-07 11:06 | Outpatient (REF) | payer OTHER, SELFPAY ==
--- NOTE | ~2024-03-07 | MM_ITS ---
EXAMINATION: MM SCREENING DIGITAL BREAST TOMOSYNTHESIS, BILATERAL CLINICAL INFORMATION: Screening. Asymptomatic. COMPARISON: Mammography: This study is compared with prior exams dating back to 2019. TECHNIQUE: Digital breast tomosynthesis is performed in both the craniocaudal and mediolateral oblique views along with computer-aided detection (CAD). Synthesized 2D images are generated from the tomosynthesis. FINDINGS: The breasts are heterogeneously dense, which may obscure small masses (ACR BI-RADS breast composition Category c). There are no significant masses, abnormal calcifications, or other abnormalities. There is a biopsy tissue marker in the upper outer quadrant of the right breast associated with a focal asymmetry. MM/MM tomosynthesis screening BI IMPRESSION: No mammographic evidence of malignancy. ASSESSMENT: BI-RADS BI-RADS 2 - Benign Findings RECOMMENDATION: Routine annual mammography screening. 1 year F/U This examination should not preclude the clinical evaluation of a suspicious palpable abnormality. This patient's information was entered into a reminder system with a target due date for their next mammogram.
== END 2024-03-07 11:07 | disposition home or self-care (01) ==
LOC: HO.MAMMO 11:06
PROVIDERS: PCP Internal Medicine; Referring Provider Advanced Practice Midwife; Visit Provider Internal Medicine
DX: Z12.31 Encounter for screening mammogram for malignant neoplasm of breast (principal)
CPT/HCPCS: 77063; 77067

== ENCOUNTER → 2024-03-07 11:30 | Outpatient (BNV) | payer OTHER, SELFPAY | PROVIDERS: PCP Internal Medicine; Referring Provider Advanced Practice Midwife; Visit Provider Radiology Diagnostic Radiology | DX: Z12.31 Encounter for screening mammogram for malignant neoplasm of breast (principal) | CPT/HCPCS: 77063; 77067 ==

== ENCOUNTER 2024-04-01 09:49 | Day surgery (SDC) | payer OTHER, SELFPAY ==
--- NOTE | 2024-03-29 10:19 | HO.ANESPROP2 ---
Documented by User: Carina Grant NP 03/29/24 10:19 HPI - Anesthesia Eval Consult details Narrative: 63yo F for Colonoscopy PMFSH Active Problems Active Problems: All Active Problems Major depression, recurrent (Acute) Abdominal pain (Acute) Family history of colon cancer (Acute) Colon cancer screening (Acute) Encounter for general adult medical examination with abnormal findings (Acute) Alcohol cessation counseling (Acute) ASCUS with positive high risk HPV cervical (Acute) Lateral epicondylitis, left elbow (Acute) Fracture of distal phalanx of index finger (Acute) Left tennis elbow (Acute) Nicotine dependence (Acute) Muscle ache (Acute) Tick bite (Acute) HPV in female (Acute) Elevated CPK (Acute) Tobacco abuse counseling (Acute) Tobacco abuse (Acute) Lipid disorder (Acute) Bilateral foot pain (Acute) Past Medical History Medical History HPV in female Major depression, recurrent High cholesterol Family History Family History Maternal Aunt Breast CA Paternal Grandmother Ovarian ca Sister Colon cancer, Onset Age: 59 Sister Lung cancer Other Mental health disorder Substance use disorder Surgical History Surgical History H/O: hysterectomy Social History Social History Household Members: None Housing: House Alcohol intake: current Alcohol intake frequency: a few times a week Patient Tobacco Use Status: Current everyday Tobacco user Cigarette Packs Per Day: 1 Years Smoked: 40 e-Cigarette/Vaping Use: Never Used Advance Directives: No Advance Directives Information Provided: Yes service: No Current occupational status: employed 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 Current occupational exposures/hazards: No Sexual orientation: Straight/Heterosexual Gender identity: Female Cognitive needs: No Hearing needs: No Vision needs: Yes Meds Allergies Allergy/AdvReac Type Severity Reaction Status Date / Time penicillin V Allergy Unknown anaphylaxis Verified 03/04/24 10:04 Assessment and Plan Assessment Anesthesia Assessment: Chart Reviewed Documented by User: Brianne Gutierrez MD 04/01/24 10:06 [facility] Past Medical History Medical History HPV in female Major depression, recurrent High cholesterol Family History Family History Maternal Aunt Breast CA Paternal Grandmother Ovarian ca Sister Colon cancer, Onset Age: 59 Sister Lung cancer Other Mental health disorder Substance use disorder Family history of problems with anesthesia: No Surgical History Surgical History H/O: hysterectomy History of Problems with Anesthesia: No Social History Social History Household Members: None Housing: House Alcohol intake: current Alcohol intake frequency: a few times a week Patient Tobacco Use Status: Current everyday Tobacco user Cigarette Packs Per Day: 1 Years Smoked: 40 e-Cigarette/Vaping Use: Never Used Advance Directives: No Advance Directives Information Provided: Yes service: No Current occupational status: employed 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 Current occupational exposures/hazards: No Sexual orientation: Straight/Heterosexual Gender identity: Female Cognitive needs: No Hearing needs: No Vision needs: Yes Meds Allergies Allergy/AdvReac Type Severity Reaction Status Date / Time penicillin V Allergy Unknown anaphylaxis Verified 03/04/24 10:04 Exam Airway Mallampati Class: II TM Dist: >3cm Neck ROM: Full Heart: rrr Lungs: cta Assessment and Plan Assessment Anesthesia Assessment: Anesthesia Plan Discussed Final Anesthetic Review Family History of Problems with Anesthesia: No History of Problems with Anesthesia: No NPO: Yes ASA Class: II Final Preanesthetic Review: No Changes in Pt Med Stat, Meds/Allgs Chart Reviewed and Consent Obtained/Reviewed Patient Risk: Low Procedure Risk: Low Anesthetic Plan Anesthetic Plan: MAC: Disposition: Standard PACU
[2024-04-01 09:58] VITALS: BP 133/50; PULSE 78; RESP 16; TEMP 36.4; O2SAT 99; BMI 25.9
--- NOTE | 2024-04-01 10:03 | MHC.SHP ---
Pre-Procedural Eval Section A - 24 Hr Update-Section A only Date of Service: 04/01/24 The patient is an INPATIENT: No The patient has been examined within 24 hours of the surgical procedure. The History & Physical has been completed within 30 days and I have reviewed it.: No Section B - Complete if H&P > 30 days Chief Complaint: Encounter for screening for malignant neoplasm of Relevant Family History (Specify if Yes): Yes Relevant Social History: Tobacco Use Present Medications: see Short Stay Collaborative assessment Medical History: Significant History (High cholesterol) History of Previous Operations: Relevant previous surgery/procedure and date(s) (History of hysterectomy) Allergies: Allergies Allergy/AdvReac Type Severity Reaction Status Date / Time penicillin V Allergy Unknown anaphylaxis Verified 03/04/24 10:04 Review of Systems Sugical H&P ROS: Negative: Constitution, Cardiovascular, Respiratory and Gastrointestinal Exam Surgical H&P Exam: Normal: Heart, Normal: Lungs, Normal: Extremities and Normal: Abdomen Plan Diagnosis/Plan: Unchanged I have reviewed the history and physical and performed a pertinent physical examination on my patient. No changes have occurred unless specified. Time Spent With Patient Time: Total time managing care of this patient today ____ minutes.
[2024-04-01] MEDS: Lactated Ringers 1,000 ML 100 ML IVCONT (10:14)
--- NOTE | 2024-04-01 11:25 | HO.OPN-COLON ---
Colonoscopy Operative Note Operative Note Date of Service: 04/01/24 Narrative: COLONOSCOPY TILL CECUM WITH BIOPSIES AND SNARE POLYPECTOMY Pre-op diagnosis: Colon cancer screening, family history of colon cancer (sister at age 59 yrs) Post-op diagnosis:? Colon polyps, Diverticulosis, hemorrhoids Endoscopist:? Keith Thakkar MD Anesthesia:?MAC Consent: Indications for the procedure and potential complications of bleeding, perforation, reaction to medications and missed diagnosis were discussed with the patient and informed consent was obtained. Instrument: Olympus PCF H 190 L variable stiffness pediatric colonoscope Monitoring: Vital signs and clinical assessment, intermittent blood pressure monitoring, continuous EKG monitoring, Pulse oximetry and Carbon Dioxide monitoring were done throughout the procedure. Please see anesthesia flowsheet. Colon withdrawl time was 20 minutes. Procedure: The patient was placed in the left lateral decubitis position and pre-procedure medications were administered. After a digital rectal examination of the ano-rectum, the video colonoscope was inserted into the rectum and advanced through the colon to the cecum. The colonoscope was slowly withdrawn in a retrograde panoramic fashion and the colon mucosa was carefully examined including a retroflexed view of the rectum. Findings and interventions are described below. Procedure Difficulty: Colon was long and tortuous and there was some loop formation. There was narrowing in the sigmoid colon at 30 cm with a sharp turn which was navigated with some difficulty Findings: Terminal Ileum: Not evaluated Cecum: Normal Ascending Colon: Normal Transverse Colon: Normal Descending Colon: Moderate diverticulosis Sigmoid Colon: A 4-5 mm sessile polyp - removed with a cold snare. Severe diverticulosis with luminal narrowing at 30 cm Rectum: A 4-5 mm sessile polyp - removed with a cold biopsy Ano-rectum: Small internal hemorrhoids Colon preparation: Excellent. [place] Bowel Preparation Scale Right colon; 3 Transverse colon: 3 Left colon; 3 (0 = Unprepared colon segment with mucosa not seen due to solid stool that cannot be cleared. 1 = Portion of mucosa of the colon segment seen, but other areas of the colon segment not well seen due to staining, residual stool and/or opaque liquid. 2 = Minor amount of residual staining, small fragments of stool and/or opaque liquid, but mucosa of colon segment seen well. 3 = Entire mucosa of colon segment seen well with no residual staining, small fragments of stool or opaque liquid) Impression and Post Procedure Diagnosis: Colonoscopy Findings: Two small polyps were removed Moderate to severe diverticulosis seen in the left colon Small hemorrhoids on retroflexed exam. Plan: Pt has a FU appointment on 06/06/24 with DION Hurst. Repeat Colonoscopy in 5 years if polyps are adenomatous and due to positive family hx of colon cancer. Above findings were reviewed with the patient and relevant handouts were given and the discharge area.
[2024-04-01 11:26] VITALS: BP 104/54; PULSE 83; RESP 16; TEMP 36.2; O2SAT 95
[2024-04-01 11:41] VITALS: BP 123/67; PULSE 74; RESP 18; TEMP 37.1; O2SAT 99
== END 2024-04-01 11:57 | disposition home or self-care (01) ==
PROVIDERS: PCP Internal Medicine; Visit Provider Internal Medicine Gastroenterology
PROC: 0DJD8ZZ Inspection of Lower Intestinal Tract, Via Natural or Artificial Opening Endoscopic (ICD-10-PCS; CPT 45378; principal; 2024-04-01 11:00)
DX: Z12.11 Encounter for screening for malignant neoplasm of colon (principal); K63.5 Polyp of colon; K62.1 Rectal polyp; K57.30 Diverticulosis of large intestine without perforation or abscess without bleeding; K64.8 Other hemorrhoids; K56.2 Volvulus; Z80.0 Family history of malignant neoplasm of digestive organs; Z88.0 Allergy status to penicillin
CPT/HCPCS: 45385; 45380; 88305; J2704

== ENCOUNTER → 2024-04-01 09:49 | Outpatient (BNV) | payer OTHER, SELFPAY | PROVIDERS: PCP Internal Medicine; Visit Provider Internal Medicine Gastroenterology | DX: Z12.11 Encounter for screening for malignant neoplasm of colon (principal); Z80.0 Family history of malignant neoplasm of digestive organs; K63.5 Polyp of colon; K62.1 Rectal polyp; K57.90 Diverticulosis of intestine, part unspecified, without perforation or abscess without bleeding; K64.8 Other hemorrhoids | CPT/HCPCS: 45380; 45385 ==

== ENCOUNTER 2024-05-03 10:40 | Outpatient (AMB) | payer OTHER, SELFPAY ==
[2024-05-03 10:46] VITALS: BP 116/74; PULSE 82; O2SAT 97; BMI 25.5
--- NOTE | 2024-05-03 10:46 | MHC.PC.OV ---
Vital Signs 05/03/24 10:46 Height 5 ft 3 in Weight 144 lb BMI 25.5 BP 116/74 Blood Pressure Location Rt brachial Position Sitting Pulse 82 Pulse Source Pulse Oximeter Pulse Oximetry (%) 97 Oxygen Delivery Method Room Air Intake Visit Reasons: Medications Allergies penicillin V Allergy (Unknown, Verified 05/03/24 10:47) anaphylaxis Medication List - Last Reconciled 05/03/24 by Hannah Baires MD coenzyme Q10 100 mg PO DAILY 90 days cyanocobalamin (vitamin B-12) 1,000 mcg PO DAILY 90 days rosuvastatin 5 mg PO DAILY 90 days Tobacco use date assessed: 05/03/24 Dental Screening Dental Screen Date: 05/03/24 Did you have a dental visit in the last 12 months?: Yes Did you have a dental problem in the last 6 months where you did not have access to dental care?: No Was dental information given to patient?: Patient has dentist HPI Medications HPI Details Patient is 63-year-old female came in today for physical exam Mammogram is up-to-date Colonoscopy up-to-date Patient is established with [facility] Continued to smoke half a pack per day, patient is getting down gradually She has developed tinea pedis for that I have sent ketoconazole cream to be used at night for 1 month She is on small dose of statin refill sent Labs are needed today Follow-up 1 year [facility] Medical History HPV in female Major depression, recurrent High cholesterol Surgical History H/O: hysterectomy Family History Maternal Aunt Breast CA Paternal Grandmother Ovarian ca Sister Colon cancer, Onset Age: 59 Sister Lung cancer Other Mental health disorder Substance use disorder Social History Household Members: None Housing: House Alcohol intake: current Alcohol intake frequency: a few times a week Patient Tobacco Use Status: Tobacco use Unknown Cigarette Packs Per Day: 1 Cigarettes Per Day: 20.0 Years Smoked: 40 e-Cigarette/Vaping Use: Never Used service: No Current occupational status: employed 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 1. Little interest or pleasure in doing things: not at all 2. Feeling down, depressed, or hopeless: several days 3. Trouble falling or staying asleep, or sleeping too much: several days 4. Feeling tired or having little energy: not at all 5. Poor appetite or overeating: several days 6. Feeling bad about yourself - or that you are a failure or have let yourself or your family down: not at all 7. Trouble concentrating on things, such as reading the newspaper or watching television: not at all 8. Moving or speaking so slowly that other people could have noticed. Or the opposite - being so fidgety or restless that you have been moving around a lot more than usual: not at all 9. Thoughts that you would be better off or of hurting yourself in some way: not at all Total score: 3 Depression Screening Interpretation: Negative Depression Screening Done: Yes 88176 - PHQ-9 Billing: Yes Source: Developed by Drs. Delroy Enrique, Kalina Vicente, Lobo Garcia and colleagues, with an educational chey from [employer]. Thrive Questionnaire Date Thrive assessed: 05/03/24 I am a: Patient What is your living situation today?: I have a steady place to live Within the past 12 months, did the food you bought not last and you didn't have the money to get more?: Never true Within the past 12 months, did you worry whether your food would run out before you got money to buy more?: Never true Do you have trouble paying for medicines?: No Do you have trouble getting transportation to medical appointments?: No Do you have trouble paying your heating and electricity bill?: No Do you have trouble taking care of your child, family member or friend?: No Do you have trouble with day-to-day activities such as bathing, preparing meals, shopping, managing finances, etc.?: No Are you currently unemployed and looking for a job?: No Are you interested in more education?: No THRIVE Score: 0 AUDIT C Alcohol Use Questionnaire (AUDIT-C) 1. How often do you have a drink containing alcohol?: Never 3. How often do you have six or more drinks on one occasion?: Never Total Score: 0 Score Reviewed/Action Taken: Yes MUSTAPHA-7 AMB Questionnaire MUSTAPHA-7 Date MUSTAPHA - 7 assessed: 05/03/24 Feeling nervous, anxious, or on edge: 0 = Not at all Not being able to stop or control worryin = Not at all Worrying too much about different things: 0 = Not at all Trouble relaxin = Several days Being so restless that it is hard to sit still: 1 = Several days Becoming easily annoyed or irritable: 0 = Not at all Feeling afraid as if something awful might happen: 0 = Not at all Total MUSTAPHA-7 score (0-4 normal; 5-9 mild; 10-14 moderate; 15-21 severe): 2 Source: Developed by Drs. Delroy Enrique, Kalina Vicente, Lobo Garcia and colleagues, with an educational chey from [employer]. MUSTAPHA-7 Assessment Billing MUSTAPHA-7 Assessment Tool: MUSTAPHA-7 Assessment 79042 Review of Systems Const Denies chills, Denies fever(s) and Denies headache(s) Eyes Denies blurry vision ENT Denies headache(s), Denies nasal discharge, Denies nasal obstruction, Denies odynophagia and Denies sinus pain Card Denies chest pain at rest and Denies chest pain with activity Resp Denies cough and Denies hemoptysis GI Denies diarrhea, Denies odynophagia, Denies vomiting and Denies hematemesis Reports as per HPI Musc Denies abnormal gait Skin/Breast Reports as per HPI Neuro Denies Neuro-related abnormal movements, Denies Abnormal speech present, Denies abnormal gait, Denies headache(s) and Denies Sensory deficit (Neuro) Psych Denies mood swings and Denies paranoia Endo Reports as per HPI Ángel/Lymph Reports as per HPI Aller/Immun Reports as per HPI Physical exam (Primary Care) Vital Signs: Last Vital Signs Pulse 82 05/03/24 10:46 BP 116/74 05/03/24 10:46 Pulse Ox 97 05/03/24 10:46 Oxygen Delivery Method Room Air 05/03/24 10:46 BMI result Body Mass Index 25.5 Tobacco/Smoking Status: Tobacco use Status Tobacco use date assessed 05/03/24 05/03/24 10:48 Patient Tobacco Use Status Tobacco use Unknown 05/03/24 10:48 e-Cigarette/Vaping Use Never Used 05/03/24 10:48 PHQ-9: PHQ-9 Score PHQ-9: Total score 3 05/03/24 10:49 Depression Screening Interpretation: Negative Thrive Assessment: Date of Thrive Assessment Date Thrive assessed 05/03/24 05/03/24 10:49 Const General: cooperative, comfortable and no acute distress Orientation/consciousness: patient oriented x3 HENMT Head: Yes normocephalic and Yes atraumatic Eyes General: appearance normal, both eyes and all related structures Pupils: Equal, round and reactive pupils present EOM: EOMs intact bilaterally Neck Neck: Yes supple and No lymphadenopathy Thyroid: Thyroid normal Lymphatic: no lymphadenopathy noted Resp Effort & Inspection: normal respiratory effort and able to speak in complete sentences Auscultation: clear to auscultation bilaterally Cardio Heart sounds: S1 normal heart sound present and S2 normal heart sound present GI Palpation (GI): Soft to palpation and nontender Auscultation: normal bowel sounds General: Yes no CVA tenderness Back/Spine/Pelvis Back: no CVA tenderness Skin General skin exam: elasticity normal and turgor normal Neuro General: patient oriented x3 and gait normal Cranial nerves: Yes Equal, round and reactive pupils present Speech: No Abnormal speech present Sensory Exam: No Sensory deficit (Neuro) Coordination: tandem gait normal and Romberg test negative Extrem General: Yes normal exam except as noted and No edema Assessment and Plan Assessment & Plan (1) Encounter for general adult medical examination with abnormal findings: Code(s): Z00.01 - Encounter for general adult medical examination with abnormal findings (2) Lipid disorder: Code(s): E78.9 - Disorder of lipoprotein metabolism, unspecified (3) Tobacco abuse: Code(s): Z72.0 - Tobacco use (4) Tinea pedis: Code(s): B35.3 - Tinea pedis Qualifiers: Laterality: left Qualified Code(s): B35.3 - Tinea pedis Plan Patient is 63-year-old female came in today for physical exam Mammogram is up-to-date Colonoscopy up-to-date Patient is established with [facility] Continued to smoke half a pack per day, patient is getting down gradually She has developed tinea pedis for that I have sent ketoconazole cream to be used at night for 1 month She is on small dose of statin refill sent Labs are needed today Breast exam declined Follow-up 1 year Orders: Orders Complete Blood Count Auto Diff Today E78.9 - Disorder of lipoprotein metabolism, unspecified, Z00.01 - Encounter for general adult medical examination with abnormal findings, Z72.0 - Tobacco use Creatine Kinase Total Today E78.9 - Disorder of lipoprotein metabolism, unspecified, Z00.01 - Encounter for general adult medical examination with abnormal findings, Z72.0 - Tobacco use Vitamin B12 Today Z00.01 - Encounter for general adult medical examination with abnormal findings Vitamin D 25-OH (D2 and D3) Today Z00.01 - Encounter for general adult medical examination with abnormal findings Comprehensive Met. Panel Today E78.9 - Disorder of lipoprotein metabolism, unspecified, Z00.01 - Encounter for general adult medical examination with abnormal findings, Z72.0 - Tobacco use LDL Cholesterol Direct Today E78.9 - Disorder of lipoprotein metabolism, unspecified, Z00.01 - Encounter for general adult medical examination with abnormal findings, Z72.0 - Tobacco use Medications: New ketoconazole 2% 1 appl topical DAILY 60 grams 1RF Foot rash Refilled rosuvastatin 5 mg PO DAILY 90 tabs 3RF 90 days coenzyme Q10 100 mg PO DAILY 90 caps 3RF 90 days Coding Level of Care Code Est Pt Level 3 (75956) Est Pt Prev Care 40-64y(46039) Diagnoses Encounter for general adult medical examination with abnormal findings Z00.01 Lipid disorder E78.9 Tobacco abuse Z72.0 Tinea pedis of left foot B35.3 Laterality: left Additional Codes MUSTAPHA-7 Assessment Billing - MUSTAPHA-7 Assessment Tool: MUSTAPHA-7 Assessment 80221 ([id number])
== END 2024-05-03 10:58 | disposition home or self-care (01) ==
PROVIDERS: PCP Internal Medicine; Visit Provider Internal Medicine
DX: Z00.01 Encounter for general adult medical examination with abnormal findings (principal); E78.9 Disorder of lipoprotein metabolism, unspecified; F17.210 Nicotine dependence, cigarettes, uncomplicated; B35.3 Tinea pedis
CPT/HCPCS: 99213; 99396

== ENCOUNTER 2024-05-06 07:43 | Outpatient (REF) | payer OTHER, SELFPAY ==
[2024-05-06 10:06] LABS: MANUAL DIFF FLAG NO
[2024-05-06 10:16] LABS: Basophils Absolute Auto 0.1 X10*3/uL (0.0-0.2); Basophils Percent Auto 0.8 % (0-2); Eosinophils Absolute Auto 0.3 X10*3/uL (0.0-0.4); Eosinophils Percent Auto 4.3 % (0-4); Hematocrit 42.6 % (37.0-47.0); Hemoglobin 14.2 g/dl (12.0-16.0); Imm Gran Abs Auto 0.02 X10*3/uL (0.00-0.03); Imm Gran Pct Auto 0.3 % (0.0-0.4); Lymphocytes Absolute Auto 2.7 X10*3/uL (1.2-4.9); Mean Corpuscular HGB Conc 33.3 g/dl (31.0-35.0); Mean Corpuscular Volume 95.9 fL (80.0-98.0); Mean Platelet Volume 11.1 fL (9.4-12.3); Monocytes Absolute Auto 0.5 X10*3/uL (0.1-1.2); Monocytes Percent Auto 5.9 % (2-11); Neutrophils Absolute Auto 4.1 x10*3/uL (2.0-8.3); Neutrophils Percent Auto 53.7 % (45-73); Platelet Count 222 X10*3/uL (160-400); Red Blood Count 4.44 X10*6/uL (4.20-5.50); Red Cell Distribution Width 12.8 % (11.0-16.0); White Blood Count 7.7 X10*3/uL (4.8-10.8)
[2024-05-06 10:48] LABS: Alanine Aminotransferase 17 U/L (0-31); Albumin Level 4.2 g/dL (3.5-5.0); Alkaline Phosphatase 62 U/L (39-117); Anion Gap 12 (12-20); Aspartate Amino Transferase 19 U/L (5-31); Bilirubin Total 0.5 mg/dL (0.0-1.0); Blood Urea Nitrogen 12 mg/dL (9-16); Calcium 8.9 mg/dL (8.4-10.2); Carbon Dioxide 26 mmol/L (22-29); Chloride 109 mmol/L (96-108); Estimated Glomerular Filt Rate > 60; Glucose Random 104 mg/dL (60-115); Potassium 4.3 mmol/L (3.3-5.1); Sodium 143 mmol/L (135-145); Total Protein 6.3 g/dL (6.5-8.0)
[2024-05-06 12:19] LABS: Vitamin B12 1285 pg/mL (200-900)
[2024-05-07 12:09] LABS: LDL Cholesterol Direct 114 mg/dL (<100)
[2024-05-10 18:03] LABS: Vitamin D 25-OH, D2 <4 ng/mL; Vitamin D 25-OH, D3 37 ng/mL; Vitamin D 25-OH, Total 37 ng/mL (30-100)
== END 2024-05-06 07:44 | disposition home or self-care (01) ==
LOC: HO.HMGCLDS 07:43
PROVIDERS: PCP Internal Medicine; Visit Provider Internal Medicine
DX: Z00.01 Encounter for general adult medical examination with abnormal findings (principal); E78.9 Disorder of lipoprotein metabolism, unspecified; Z72.0 Tobacco use
CPT/HCPCS: 36415; 80053; 82306; 82550; 82607; 83721; 85025

== ENCOUNTER 2024-06-27 12:01 | Outpatient (AMB) | payer OTHER, SELFPAY ==
--- NOTE | 2024-06-27 12:24 | A.OFFVIS_ITS ---
Vital Signs 06/27/24 12:27 Height 5 ft 3 in Weight 143 lb 4.807 oz BMI 25.4 BP 116/72 Intake Visit Reasons: Colposcopy Ethernet Network Architect Required: No Information Interpreted: non-clinical & clinical Corn Lab Technician: Corn Lab Technician Present (Lexi PADILLA) Accompanied by: Self / Same As Patient Allergies penicillin V Allergy (Unknown, Verified 06/27/24 12:31) anaphylaxis Post menopausal: Yes HPI Comments Details: Presenting for colposcopy regarding Pap smear done in 10/14 was negative, HPV E6/E7 positive PFSH Medical History HPV in female Major depression, recurrent High cholesterol Surgical History Hx of colonoscopy H/O: hysterectomy Family History Maternal Aunt Breast CA Paternal Grandmother Ovarian ca Sister Colon cancer, Onset Age: 59 Sister Lung cancer Other Mental health disorder Substance use disorder Social History Household Members: None Housing: House Alcohol intake: current Alcohol intake frequency: a few times a week Patient Tobacco Use Status: Tobacco use Unknown Cigarette Packs Per Day: 1 Cigarettes Per Day: 20.0 Years Smoked: 40 e-Cigarette/Vaping Use: Never Used service: No Current occupational status: employed 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 We thoroughly discussed the procedure itself, including its details, alternatives, and all associated risks. This included but not limited to the following complications such as bleeding, infection, and injury to the vagina, bladder, and vessels, as well as the potential need for transfusion with all its associated risks. Subsequently, the patient sign the consent. Pap smear result: Negative Pap/HPV E6/E7 positive Procedure: During the procedure, the following steps were performed: A speculum was inserted, and acetic acid was applied. Colposcopy was conducted, allowing visualization of the transformation zone. Acetowhite lesions were identified at the 6+9+12+3 o'clock position. Cervical biopsies were obtained from the 6+9+12+3 o'clock position, followed by an endocervical curettage (ECC). Vaginoscopy of the upper vagina revealed no evidence of aceto-white lesions. Hemostasis was achieved using Monsel solution, and the patient tolerated the procedure well. Post-Procedure Instructions: The patient was advised to promptly contact the office or the after hours answering service or go to the emergency room if experiencing a temperature exceeding 100.4?F, abdominal pain, nausea/vomiting, or bleeding. Additionally, the patient was instructed to abstain from vaginal intercourse and bathtub use. The patient confirmed understanding of these instructions. Discharge Instructions: The patient was instructed to schedule a follow-up appointment in 2 weeks for further evaluation and management. Please note that this note was generated using a voice recognition program, and errors may have occurred during legal transcriber. [id number] of cervix including upper vagina with biopsy and ECC Procedure code (CPT) selection complete Assessment & Plan Assessment & Plan (1) HPV in female: Comment: 09/11 ascus HPV E6/E7 positive colpo negative ECC no endocervical tissue 07/13 Pap negative/HPV E6/E7 positive colpo negative, ECC no endocervical tissue 09/13 ascus/HPV E6/E7 positive, colpo biopsy negative, ECC negative 10/14 Pap smear negative/HPV E6 E7 positive Code(s): B97.7 - Papillomavirus as the cause of diseases classified elsewhere Category: Medical Plan: Discussed with the patient the result of her pap negative/HPV positive, its sign ificance, risk of progression, persistence, and regression. the false positive/negative rate of a Pap smear as a screening test in detecting cervical cancer and the indication for a diagnostic test -colposcopy, biopsy, endocervical curettage. Colpo/biopsy/ECC done, see procedure note. The patient verbalized understanding and agreed with the plan, all questions answered. Orders: Orders AMB Colposcopy Today B97.7 - Papillomavirus as the cause of diseases classified elsewhere Coding Level of Care Code Procedure Only Diagnoses HPV in female B97.7 CPT Codes Colposcopy - CPT: 57595-Yrzaeqila of cervix including upper vagina with biopsy and ECC ([id number])
[2024-06-27 12:27] VITALS: BP 116/72; BMI 25.4
== END 2024-06-27 12:46 | disposition home or self-care (01) ==
PROVIDERS: PCP Internal Medicine; Visit Provider Obstetrics & Gynecology
DX: R87.810 Cervical high risk human papillomavirus (HPV) DNA test positive (principal)
CPT/HCPCS: 57454

== ENCOUNTER 2024-06-27 12:01 | Outpatient (REF) | payer OTHER, SELFPAY | END 2024-06-27 12:02 | disposition home or self-care (01) | LOC: HO.LNP 12:01 | PROVIDERS: PCP Internal Medicine; Visit Provider Obstetrics & Gynecology | DX: R87.810 Cervical high risk human papillomavirus (HPV) DNA test positive (principal) | CPT/HCPCS: 57454; 88305 ==

== ENCOUNTER 2024-08-21 14:05 | Outpatient (AMB) | payer OTHER, SELFPAY ==
[2024-08-21 14:10] VITALS: BP 114/70; BMI 25.3
--- NOTE | 2024-08-21 14:10 | A.OFFVIS_ITS ---
Vital Signs 08/21/24 14:10 Height 5 ft 3 in Weight 143 lb BMI 25.3 BP 114/70 Blood Pressure Location Lt brachial Position Sitting Intake Visit Reasons: Colpo Results Allergies penicillin V Allergy (Unknown, Verified 08/21/24 14:15) anaphylaxis HPI Comments Details: Presenting post colpo for follow-up. The patient is doing well with no complaints. The pathology showed the following: A. Endocervix, curettage: Squamous mucosa with focal reactive changes; negative for dysplasia; and rare detached endocervical glandular epithelial cells (may not be self pay representative of the endocervix. B. Cervix, 3:00, biopsy: Squamous mucosa; negative for dysplasia; no endocervical glandular component present. C. Cervix, 6:00, biopsy: Squamous mucosa; negative for dysplasia; no endocervical glandular component present. D. Cervix, 9:00, biopsy: Squamous mucosa; negative for dysplasia; no endocervical glandular component present. E. Cervix, 12:00, biopsy: Detached squamous epithelium; negative for dysplasia; no endocervical glandular component present. Comment: The patient's previous negative Pap test ([id number]) concurs with the current biopsy [facility] Medical History HPV in female Major depression, recurrent High cholesterol Surgical History Hx of colonoscopy H/O: hysterectomy Family History Maternal Aunt Breast CA Paternal Grandmother Ovarian ca Sister Colon cancer, Onset Age: 59 Sister Lung cancer Other Mental health disorder Substance use disorder Social History Household Members: None Housing: House Alcohol intake: current Alcohol intake frequency: a few times a week Patient Tobacco Use Status: Tobacco use Unknown Cigarette Packs Per Day: 1 Cigarettes Per Day: 20.0 Years Smoked: 40 e-Cigarette/Vaping Use: Never Used service: No Current occupational status: employed 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 Current occupational exposures/hazards: No Sexual orientation: Straight/Heterosexual Gender identity: Female Cognitive needs: No Hearing needs: No Vision needs: Yes Review of Systems Const All systems reviewed & are unremarkable except as noted in HPI and below Reports as per HPI and Reports no additional complaints GI Reports no additional complaints Reports no additional complaints Physical Exam Vital Signs: Last Vital Signs BP 114/70 08/21/24 14:10 BMI result Body Mass Index 25.3 Assessment & Plan Assessment & Plan (1) HPV in female: Comment: 09/11 ascus HPV E6/E7 positive colpo negative ECC no endocervical tissue 07/13 Pap negative/HPV E6/E7 positive colpo negative, ECC no endocervical tissue 09/13 ascus/HPV E6/E7 positive, colpo biopsy negative, ECC negative 10/14 Pap smear negative/HPV E6 E7 positive, colpo biopsy ECC negative Code(s): B97.7 - Papillomavirus as the cause of diseases classified elsewhere Category: Medical Plan: Discussed with the patient the pathology results of the colposcopy biopsies & endocervical curettage. Discussed with the patient the sensitivity specificity, positive and negative predictive value in detecting cervical cancer in addition discussed the regression, persistence and progression rates. Recommended co- testing in 12 months, if cytology and or HPV are abnormal will proceed was colposcopy biopsy and endocervical curettage,. Instructions given to the patient to schedule a co test appointment in 1 year from previous co testing. All questions answered the patient verbalized understanding. Coding Level of Care Code Est Pt Level 3 (11076) Diagnoses HPV in female B97.7
== END 2024-08-21 14:22 | disposition home or self-care (01) ==
LOC: HO.HWS 14:05
PROVIDERS: PCP Internal Medicine; Visit Provider Obstetrics & Gynecology
DX: R87.810 Cervical high risk human papillomavirus (HPV) DNA test positive (principal)
CPT/HCPCS: 99213

== ENCOUNTER → 2024-08-21 14:05 | Outpatient (BNVA) | payer OTHER, SELFPAY | PROVIDERS: PCP Internal Medicine; Visit Provider Obstetrics & Gynecology | DX: B97.7 Papillomavirus as the cause of diseases classified elsewhere (principal); Z71.2 Person consulting for explanation of examination or test findings | CPT/HCPCS: 99212 ==

== ENCOUNTER 2025-05-08 11:36 | Outpatient (REF) | payer OTHER, SELFPAY | END 2025-05-08 11:37 | disposition home or self-care (01) | LOC: HO.MAMMO 11:36 | PROVIDERS: PCP Internal Medicine; Visit Provider Internal Medicine | DX: Z12.31 Encounter for screening mammogram for malignant neoplasm of breast (principal) | CPT/HCPCS: 77063; 77067 ==

== ENCOUNTER → 2025-05-08 12:00 | Outpatient (BNV) | payer OTHER, SELFPAY | PROVIDERS: PCP Internal Medicine; Visit Provider Radiology Body Imaging | DX: Z12.31 Encounter for screening mammogram for malignant neoplasm of breast (principal) | CPT/HCPCS: 77063; 77067 ==

== ENCOUNTER 2025-05-16 13:15 | Outpatient (AMB) | payer OTHER, SELFPAY ==
--- OUTSIDE RECORDS SUMMARY | 2025-05-16 13:17 | XMS_ITS | Clinical Summary ---
Author Organization [facility] Address [address] [phone] Phone Care Team Providers Care Clinical Services Professional Name Role Phone Emir Quinones MD Primary Care Provider [phone] Medications atorvastatin calcium (ATORVASTATIN ORAL) Active Medication-Free Text Premarin Active Social History Tobacco Use Types Packs/Day Years Used Date Smoking Tobacco: Never Assessed Education Answer Date Recorded Are you interested in more education? Not on kaykay e 02/17/2023 Are you concerned about learning? Not on file 02/17/2023 No 02/17/2023 No 02/17/2023 Digital Access Answer Date Recorded No 03/20/2023 No 03/20/2023 No 03/20/2023 Reliable internet access at home? Not on file 03/20/2023 Device with a working camera? Not on file Comments Unknown Sex and Gender Information Value Date Recorded Sex Assigned at Not on file Legal Sex Female 9:48 PM EDT Gender Identity Not on file Sexual Orientation Not on file Last Filed Vital Signs Vital Sign Reading Time Taken Comments Blood Pressure 120/67 10/30/2015 1:45 AM EST Pulse 73 10/30/2015 1:45 AM EST Temperature - - Respiratory Rate - - Oxygen Saturation - - Inhaled Oxygen Concentration - - Weight 63.5 kg (140 lb) 10/30/2015 1:45 AM EST Height 158.8 cm (5' 2.5 ) 10/30/2015 1:45 AM EST Body Mass Index 25.2 10/30/2015 1:45 AM EST Plan of Treatment Health Maintenance Due Date Last Done Comments Adult Td,Tdap Booster 1960 LIPID PANEL 1960 DEPRESSION SCREENING 1972 HEPATITIS C SCREENING 1978 HIV ONE-TIME SCREENING (18-6 5 YEARS) 1978 PAP SMEAR 1981 MAMMOGRAM 2000 PNEUMOCOCCAL VACCINES (50+ years) (1 of 1 - PCV) 2010 COVID-19 VACCINE (4 - 2023-2 5 season) 2024 09/01/2021, 02/05/2021, 01/07/2021 RSV VACCINE (1 - 1-dose 75+ series) 2035 ZOSTER VACCINES Completed 04/16/2019, 01/30/2019 COLORECTAL CANCER SCREENING Completed HEPATITIS A VACCINES Aged Out No long er eligible based on patient's age to complete this topic HIB VACCINES Aged Out No longer eligi ble based on patient's age to complete this topic MENINGOCOCCAL VACCINES (ACWY) Aged Out No longer eligible based on patient's age to complete this topic MENINGOCOCCAL VACCINES (B) Aged Out N o longer eligible based on patient's age to complete this topic Medical Devices Not on file Insurance [facility] H[facility] POS [facility] [place] [address] [place] [address] [place] [address] [place] [address] [place] [address] [place] [address] [place] [address] [place] [address] [place] [address] [place] [place] [address] [place] [address] [place] [place] [address] [place] [address] HMO POS Care Teams Clinical Services Professional Relationship Specialty Start Date End Date Emir Quinones MD PCP - General 10/26/17 Additional Source Comments The information contained in this document represents components of the legal health record. It is not the complete legal health record.[facility]
[2025-05-16 13:24] VITALS: BP 124/80; PULSE 76; O2SAT 98; BMI 25.5
--- NOTE | 2025-05-16 13:24 | A.OFFPC_ITS ---
Vital Signs 05/16/25 13:24 Height 5 ft 3 in Weight 144 lb BMI 25.5 BP 124/80 Blood Pressure Location Lt brachial Position Sitting Pulse 76 Pulse Source Pulse Oximeter Pulse Oximetry (%) 98 Intake Visit Reasons: Annual PE Allergies penicillin V Allergy (Unknown, Verified 05/16/25 13:24) anaphylaxis Medication List - Last Reconciled 05/16/25 by Hannah Baires MD coenzyme Q10 100 mg PO DAILY 90 days cyanocobalamin (vitamin B-12) 1,000 mcg PO DAILY 90 days ketoconazole 2% 1 appl topical DAILY rosuvastatin 5 mg PO DAILY 90 days Tobacco use date assessed: 05/16/25 Fall risk assessment: No Falls in past year Last assessed Fall Risk: 05/16/25 Dental Screening Dental Screen Date: 05/16/25 Did you have a dental visit in the last 12 months?: Yes Did you have a dental problem in the last 6 months where you did not have access to dental care?: No Was dental information given to patient?: Patient has dentist HPI Annual PE HPI Details History of Present Illness - The patient is a 64-year-old female pr esenting for a physical examination and health maintenance visit. - The patient reports bilateral foot samantha n with symptoms described as burning and hurting, occurring for several years and progressively worsening. - The foot pain is described as severe a t times, impacting mobility, especially when transitioning from sitting to standing. No specific relief or aggravating factors were noted. - The patient has a history of tobacco u se, smoking one pack per day, with discussion of decreasing but no active cessation efforts. - The patient had a colonoscopy performe d in March of last year and a mammogram in April of this year. - She is aware of her positive HPV statu s and a previous high vitamin B12 level identified in last year's laboratory tests, which was attributed to supplement intake at the time. Medical History: - Tobacco use disorder - Positive human papillomavirus (HPV) st atus - History of elevated vitamin B12 levels Social History: - The patient smokes one pack of cigaret mario per day. Acknowledges awareness of smoking cessation resources but no current plans to quit. Family History: - No family history of osteoporosis. Health Maintenance - Mammogram was completed in April 2025. - Colonoscopy was performed in March 2024 . - The patient previously completed a ed ngles vaccine series (Zoster) in 2019. - Tetanus immunization is up to date. - There was a discussion about schedulin g a bone density study. - Rechecking of elevated vitamin B12 sta tus is planned. Medications - Rosuvastatin 5 mg for hypercholesterol emia Patient Instructions - Schedule and complete a lung scan. - Consider scheduling a nerve conduction study due to foot pain and burning sensations. - The patient may undergo a bone density test, especially considering smoking history. - Reassessment of blood vitamin B12 leve ls is advised. - The patient's positive HPV status was noted, and follow-up with gynecologic consultation was suggested. - The patient was advised of resources f or smoking cessation. Review of Systems - General: No fever no chills - Neurological: No headaches no dizzin ess - Ear nose throat: No sore throat no hearing difficulty no ear pain - Cardiovascular: No syncope, no chest pain, no palpitations - Gastrointestinal: No nausea vomiting or diarrhea - Endocrine: No polyuria polydipsia no heat intolerance - Genitourinary: No dysuria - Skin: No new complaints Physical Exam General: Cooperative, healthy appearing, comfortable, no acute distress Orientation: Patient oriented x3 Head: Normal to inspection Ears: Within normal limit visually Nose: Normal external nose present Face and sinus: Normal facial exam Eyes: Appearance normal, extraocular movement intact pupils reactive Neck: Normal visual inspection and supple, thyroid within normal limit Respiratory: Normal respiratory effort and able to speak in complete sentences. Clear to auscultation, no stridor Cardiovascular: S1 and S2 RRR GI: Normal to inspection. Soft to palpation and nontender Skin: Turgor normal, no acute findings Neuro: Patient oriented x3, motor sensory intact, balance intact, tandem pass Extremities: Normal to inspection, range of motion intact PFSH Medical History HPV in female Major depression, recurrent High cholesterol Surgical History Hx of colonoscopy H/O: hysterectomy Family History Maternal Aunt Breast CA Paternal Grandmother Ovarian ca Sister Colon cancer, Onset Age: 59 Sister Lung cancer Other Mental health disorder Substance use disorder Social History Household Members: None Housing: House Alcohol intake: current Alcohol intake frequency: a few times a week Patient Tobacco Use Status: Current everyday Tobacco user Tobacco use type: Cigarette Cigarette Packs Per Day: 1 Cigarettes Per Day: 20.0 Years Smoked: 40 e-Cigarette/Vaping Use: Never Used service: No Current occupational status: employed 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 1. Little interest or pleasure in doing things: not at all 2. Feeling down, depressed, or hopeless: not at all 3. Trouble falling or staying asleep, or sleeping too much: not at all 4. Feeling tired or having little energy: not at all 5. Poor appetite or overeating: not at all 6. Feeling bad about yourself - or that you are a failure or have let yourself or your family down: not at all 7. Trouble concentrating on things, such as reading the newspaper or watching television: not at all 8. Moving or speaking so slowly that other people could have noticed. Or the opposite - being so fidgety or restless that you have been moving around a lot more than usual: not at all 9. Thoughts that you would be better off or of hurting yourself in some way: not at all Total score: 0 Depression Screening Interpretation: Negative Depression Screening Done: Yes 17690 - PHQ-9 Billing: Yes Source: Developed by Drs. Delroy Enrique, Kalina Vicente, Lobo Garcia and colleagues, with an educational chey from [employer]. Thrive Questionnaire Date Thrive assessed: 05/16/25 I am a: Patient What is your living situation today?: I have a steady place to live Within the past 12 months, did the food you bought not last and you didn't have the money to get more?: Never true Within the past 12 months, did you worry whether your food would run out before you got money to buy more?: Never true Do you have trouble paying for medicines?: No Do you have trouble getting transportation to medical appointments?: No Do you have trouble paying your heating and electricity bill?: No Do you have trouble taking care of your child, family member or friend?: No Do you have trouble with day-to-day activities such as bathing, preparing meals, shopping, managing finances, etc.?: No Are you currently unemployed and looking for a job?: No Are you interested in more education?: No Please select the resources that you would like help with: None Currently or been in a relationship where the following occur: I choose not to answer THRIVE Score: 0 AUDIT C Alcohol Use Questionnaire (AUDIT-C) 1. How often do you have a drink containing alcohol?: Monthly or less 2. How many drinks containing alcohol do you have on a typical day when you are drinking?: 1 or 2 3. How often do you have six or more drinks on one occasion?: Less than monthly Total Score: 2 Score Reviewed/Action Taken: Yes MUSTAPHA-7 AMB Questionnaire MUSTAPHA-7 Date MUSTAPHA - 7 assessed: 05/16/25 Feeling nervous, anxious, or on edge: 0 = Not at all Not being able to stop or control worryin = Not at all Worrying too much about different things: 0 = Not at all Trouble relaxin = Not at all Being so restless that it is hard to sit still: 0 = Not at all Becoming easily annoyed or irritable: 0 = Not at all Feeling afraid as if something awful might happen: 0 = Not at all Total MUSTAPHA-7 score (0-4 normal; 5-9 mild; 10-14 moderate; 15-21 severe): 0 Source: Developed by Drs. Delroy Enrique, Kalina Vicente, Lobo Garcia and colleagues, with an educational chey from [employer]. MUSTAPHA-7 Assessment Billing MUSTAPHA-7 Assessment Tool: MUSTAPHA-7 Assessment 30157 Physical exam (Primary Care) Vital Signs: Last Vital Signs Pulse 76 05/16/25 13:24 BP 124/80 05/16/25 13:24 Pulse Ox 98 05/16/25 13:24 BMI result Body Mass Index 25.5 Tobacco/Smoking Status: Tobacco use Status Tobacco use date assessed 05/16/25 05/16/25 13:26 Patient Tobacco Use Status Current everyday Tobacco 05/16/25 13:26 Tobacco use type Cigarette 05/16/25 13:26 e-Cigarette/Vaping Use Never Used 05/16/25 13:26 PHQ-9: PHQ-9 Score PHQ-9: Total score 0 05/16/25 13:26 Depression Screening Interpretation: Negative Thrive Assessment: Date of Thrive Assessment Date Thrive assessed 05/16/25 05/16/25 13:26 Currently or been in a relationship where the following occur: I choose not to answer Coding Level of Care Code Est Pt Level 3 (21207) Est Pt Prev Care 40-64y(35531) Diagnoses Encounter for general adult medical examination with abnormal findings Z00.01 Paresthesia of both lower extremities R20.2 Menopausal state N95.1 Tobacco abuse Z72.0 Elevated CPK R74.8 Lipid disorder E78.9 Additional Codes MUSTAPHA-7 Assessment Billing - MUSTAPHA-7 Assessment Tool: MUSTAPHA-7 Assessment 63624 ([id number]) PHQ-9 - 02482 - PHQ-9 Billing: Yes ([id number]) Assessment & Plan Assessment & Plan (1) Encounter for general adult medical examination with abnormal findings: Code(s): Z00.01 - Encounter for general adult medical examination with abnormal findings Category: Medical (2) Paresthesia of both lower extremities: Code(s): R20.2 - Paresthesia of skin Category: Medical (3) Menopausal state: Code(s): N95.1 - Menopausal and female climacteric states Category: Medical (4) Tobacco abuse: Code(s): Z72.0 - Tobacco use Category: Medical (5) Elevated CPK: Code(s): R74.8 - Abnormal levels of other serum enzymes Category: Medical (6) Lipid disorder: Code(s): E78.9 - Disorder of lipoprotein metabolism, unspecified Category: Medical Plan History of Present Illness - The patient is a 64-year-old female presenting for a physical examination and health maintenance visit. - The patient reports bilateral foot pain with symptoms described as burning and hurting, occurring for several years and progressively worsening. - The foot pain is described as severe at times, impacting mobility, especially when transitioning from sitting to standing. No specific relief or aggravating factors were noted. - The patient has a history of tobacco use, smoking one pack per day, with discussion of decreasing but no active cessation efforts. - The patient had a colonoscopy performed in March of last year and a mammogram in April of this year. - She is aware of her positive HPV status and a previous high vitamin B12 level identified in last year's laboratory tests, which was attributed to supplement intake at the time. Medical History: - Tobacco use disorder - Positive human papillomavirus (HPV) status - History of elevated vitamin B12 levels Social History: - The patient smokes one pack of cigarettes per day. Acknowledges awareness of smoking cessation resources but no current plans to quit. Family History: - No family history of osteoporosis. Health Maintenance - Mammogram was completed in April 2025. - Colonoscopy was performed in March 2024. - The patient previously completed a shingles vaccine series (Zoster) in 2018. - Tetanus immunization is up to date. - There was a discussion about scheduling a bone density study. - Rechecking of elevated vitamin B12 status is planned. Medications - Rosuvastatin 5 mg for hypercholesterolemia Patient Instructions - Schedule and complete a lung scan. - Consider scheduling a nerve conduction study due to foot pain and burning sensations. - The patient may undergo a bone density test, especially considering smoking history. - Reassessment of blood vitamin B12 levels is advised. - The patient's positive HPV status was noted, and follow-up with gynecologic consultation was suggested. - The patient was advised of resources for smoking cessation. Orders: Orders XR DEXA axial skeleton Today N95.1 - Menopausal and female climacteric states NE nerve conduction velocity Today R20.2 - Paresthesia of skin NE electromyogram (EMG) Today R20.2 - Paresthesia of skin Complete Blood Count Auto Diff Today E78.9 - Disorder of lipoprotein metabolism, unspecified, R20.2 - Paresthesia of skin, R74.8 - Abnormal levels of other serum enzymes, Z00.01 - Encounter for general adult medical examination with abnormal findings, Z72.0 - Tobacco use Comprehensive Cylinder. Panel Fast Today E78.9 - Disorder of lipoprotein metabolism, unspecified, R20.2 - Paresthesia of skin, R74.8 - Abnormal levels of other serum enzymes, Z00.01 - Encounter for general adult medical examination with abnormal findings, Z72.0 - Tobacco use Lipid Panel Today E78.9 - Disorder of lipoprotein metabolism, unspecified, R20.2 - Paresthesia of skin, R74.8 - Abnormal levels of other serum enzymes, Z00.01 - Encounter for general adult medical examination with abnormal findings, Z72.0 - Tobacco use Vitamin B12 Today E78.9 - Disorder of lipoprotein metabolism, unspecified, R20.2 - Paresthesia of skin, R74.8 - Abnormal levels of other serum enzymes, Z00.01 - Encounter for general adult medical examination with abnormal findings, Z72.0 - Tobacco use Vitamin D 25-OH (D2 and D3) Today E78.9 - Disorder of lipoprotein metabolism, unspecified, R20.2 - Paresthesia of skin, R74.8 - Abnormal levels of other serum enzymes, Z00.01 - Encounter for general adult medical examination with abnormal findings, Z72.0 - Tobacco use TSH reflex Free T4 Today E78.9 - Disorder of lipoprotein metabolism, unspecified, R20.2 - Paresthesia of skin, R74.8 - Abnormal levels of other serum enzymes, Z00.01 - Encounter for general adult medical examination with abnormal findings, Z72.0 - Tobacco use Creatine Kinase Total Today E78.9 - Disorder of lipoprotein metabolism, unspecified, R20.2 - Paresthesia of skin, R74.8 - Abnormal levels of other serum enzymes, Z00.01 - Encounter for general adult medical examination with abnormal findings, Z72.0 - Tobacco use Referrals Lung Cancer Screening Referral Z72.0 - Tobacco use
== END 2025-05-16 13:51 | disposition home or self-care (01) ==
LOC: HO.HMCC 13:16
PROVIDERS: PCP Internal Medicine; Visit Provider Internal Medicine
DX: Z00.01 Encounter for general adult medical examination with abnormal findings (principal); R20.2 Paresthesia of skin; N95.1 Menopausal and female climacteric states; Z72.0 Tobacco use; R74.8 Abnormal levels of other serum enzymes; E78.9 Disorder of lipoprotein metabolism, unspecified

== ENCOUNTER → 2025-05-16 13:15 | Outpatient (BNVA) | payer OTHER, SELFPAY | PROVIDERS: PCP Internal Medicine; Visit Provider Internal Medicine | DX: Z00.01 Encounter for general adult medical examination with abnormal findings (principal); R20.2 Paresthesia of skin; N95.1 Menopausal and female climacteric states; R74.8 Abnormal levels of other serum enzymes; E78.9 Disorder of lipoprotein metabolism, unspecified; F17.210 Nicotine dependence, cigarettes, uncomplicated | CPT/HCPCS: 96127; 99212; 99396 ==

== ENCOUNTER 2025-05-20 08:15 | Outpatient (REF) | payer OTHER, SELFPAY ==
--- OUTSIDE RECORDS SUMMARY | 2025-05-20 08:20 | XMS_ITS | Clinical Summary ---
Author Organization [facility] Address [address] [id number] Phone Care Team Providers Care Insurance Sales Producer Name Role Phone Emir Quinones MD Primary Care Provider [phone] Medications atorvastatin calcium (ATORVASTATIN ORAL) Active Medication-Free [...] topic Medical Devices Not on file Insurance [facility] HMO POS [facility] [place] [address] [place] [address] [place] [address] [place] [address] [place] [address] [place] [address] [place] [address] [place] [address] [place] [address] [place] [address] [place] [address] [place] [address] [place] [address] [place] [address] HMO POS Care Teams Insurance Sales Producer Relationship Specialty Start Date End Date Emir Quinones MD PCP - General 10/26/17 Additional Source Comments The information contained in this document represents components of the legal health record. It is not the complete legal health record.[facility]
[2025-05-20 10:14] LABS: MANUAL DIFF FLAG NO
[2025-05-20 10:22] LABS: Hematocrit 43.4 % (37.0-47.0); Hemoglobin 14.3 g/dl (12.0-16.0); Imm Gran Abs Auto 0.02 X10*3/uL (0.00-0.03); Imm Gran Pct Auto 0.3 % (0.0-0.4); Lymphocytes Absolute Auto 2.5 X10*3/uL (1.2-4.9); Mean Corpuscular HGB Conc 32.9 g/dl (31.0-35.0); Mean Corpuscular Hemoglobin 31.4 pg (27.0-33.0); Mean Corpuscular Volume 95.4 fL (80.0-98.0); NRBC Abs Auto 0.000 X10*3/uL (0.0-0.012); NRBC Pct Auto 0.0 /100WBC (0.0-0.2); Platelet Count 230 X10*3/uL (160-400); Red Blood Count 4.55 X10*6/uL (4.20-5.50); White Blood Count 7.1 X10*3/uL (4.8-10.8)
[2025-05-20 11:01] LABS: Alanine Aminotransferase 23 U/L (0-31); Albumin Level 4.4 g/dL (3.5-5.0); Alkaline Phosphatase 66 U/L (39-117); Anion Gap 11 (12-20); Aspartate Amino Transferase 24 U/L (5-31); Blood Urea Nitrogen 13 mg/dL (9-16); Calcium 9.1 mg/dL (8.4-10.2); Carbon Dioxide 27 mmol/L (22-29); Chloride 111 mmol/L (96-108); Cholesterol 176 mg/dL (<200); Estimated Glomerular Filt Rate > 60; HDL Cholesterol 51 mg/dL (>40); Potassium 4.7 mmol/L (3.3-5.1); Sodium 144 mmol/L (135-145); Total Protein 6.4 g/dL (6.5-8.0); Triglycerides 120 mg/dL (<150)
[2025-05-20 11:16] LABS: Vitamin B12 284 pg/mL (200-900)
[2025-05-24 16:38] LABS: Vitamin D 25-OH, D2 <4 ng/mL; Vitamin D 25-OH, D3 35 ng/mL; Vitamin D 25-OH, Total 35 ng/mL (30-100)
== END 2025-05-20 08:16 | disposition home or self-care (01) ==
LOC: HO.HMGCLDS 08:15
PROVIDERS: PCP Internal Medicine; Visit Provider Internal Medicine
DX: Z00.01 Encounter for general adult medical examination with abnormal findings (principal); E78.9 Disorder of lipoprotein metabolism, unspecified; R74.8 Abnormal levels of other serum enzymes; R20.2 Paresthesia of skin; Z72.0 Tobacco use
CPT/HCPCS: 36415; 80053; 80061; 82306; 82550; 82607; 84443; 85025

== ENCOUNTER 2025-07-08 08:49 | Outpatient (REF) | payer OTHER, SELFPAY ==
--- NOTE | 2025-07-08 08:54 | EMG_ITS ---
Chief complaint:? Paresthesias of both lower extremities Reason for referral: Evaluate for Peripheral Neuropathy and Radiculopathy Referred by:? Hannah Baires MD Procedure done:? Bilateral lower extremities NCS/EMG Bilateral tibial and peroneal motor studies were performed bilateral superficial peroneal and sural sensory studies were performed bilateral median and lateral mixed plantars sensory studies were performed tibial H reflexes were obtained and EMG needle examination was performed. Bilateral peroneal and tibial distal latencies were slightly prolonged with intact amplitude. Right peroneal study revealed slowing across the knee. Bilateral superficial peroneal sensory amplitudes were decreased. Similar reduction of amplitude was noted in median and lateral plantars studies with slowing of conduction velocity. Impression: 1. 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
--- OUTSIDE RECORDS SUMMARY | 2025-07-08 10:48 | XMS_ITS | Clinical Summary ---
Author Organization [facility] Address [address] [id number] Phone Care Team Providers Care [employer] Inspector Name Role Phone Emir Quinones MD Primary Care Provider [phone] Medications atorvastatin calcium (ATORVASTATIN ORAL) Active Medication-Free [...] topic Medical Devices Not on file Insurance [facility] HMO POS [facility] [place] [address] [place] [address] [place] [address] [place] [address] [place] [address] [place] [address] [place] [address] [place] [address] [place] [address] [place] [address] [place] [address] [place] [place] [address] HMO POS Care Teams [employer] Inspector Relationship Specialty Start Date End Date Emir Quinones MD PCP - General 10/26/17 Additional Source Comments The information contained in this document represents components of the legal health record. It is not the complete legal health record.[facility]
== END 2025-07-08 08:50 | disposition home or self-care (01) ==
LOC: HO.NEURO 08:49
PROVIDERS: PCP Internal Medicine; Visit Provider Internal Medicine
DX: R20.2 Paresthesia of skin (principal); G62.9 Polyneuropathy, unspecified
CPT/HCPCS: 95886; 95913

== ENCOUNTER → 2025-07-08 08:54 | Outpatient (BNV) | payer OTHER, SELFPAY | PROVIDERS: PCP Internal Medicine; Visit Provider Psychiatry & Neurology Neurology | DX: G62.89 Other specified polyneuropathies (principal) | CPT/HCPCS: 95886; 95913 ==

== ENCOUNTER 2025-07-10 06:32 | Outpatient (AMB) | payer OTHER, SELFPAY ==
--- OUTSIDE RECORDS SUMMARY | 2025-07-10 06:36 | XMS_ITS | Clinical Summary ---
Author Organization [facility] Address [address] [id number] Phone Care Team Providers Care Vocational Training Teacher Name Role Phone Emir Quinones MD Primary Care Provider [phone] Medications atorvastatin calcium (ATORVASTATIN ORAL) Active Medication-Free [...] topic Medical Devices Not on file Insurance [facility] HMO POS [facility] [place] [address] [place] [address] [place] [address] [place] [address] [place] [address] [place] [address] [place] [address] [place] [address] [place] [address] [place] [address] [place] [place] [place] [address] HMO POS Care Teams Vocational Training Teacher Relationship Specialty Start Date End Date Emir Quinones MD PCP - General 10/26/17 Additional Source Comments The information contained in this document represents components of the legal health record. It is not the complete legal health record.[facility]
--- NOTE | 2025-07-10 08:53 | A.OFFPC_ITS ---
Intake Visit Reasons: imaging result Allergies penicillin V Allergy (Unknown, Verified 05/16/25 13:24) anaphylaxis Medication List - Last Reconciled 07/10/25 by Hannah Baires MD coenzyme Q10 100 mg PO DAILY 90 days cyanocobalamin (vitamin B-12) 1,000 mcg PO DAILY 90 days ketoconazole 2% 1 appl topical DAILY rosuvastatin 5 mg PO DAILY 90 days Tobacco use date assessed: 05/16/25 Dental Screening Dental Screen Date: 05/16/25 HPI imaging result HPI Details History of Present Illness The patient is a 64-year-old female presenting with a burning sensation in the feet. Burning sensation in the feet: - The patient has been experiencing a bu rning sensation in her feet, which is ongoing. - She has been taking Advil daily for ov erall joint pain and other aches. - To alleviate the burning sensation in her feet, she has been doing foot baths and using tennis balls and ice balls for massage. - Confirmatory tests indicate the presen ce of neuropathy in the feet. - Standing for prolonged periods, presum ably due to her profession, may have contributed to the neuropathy. Nerve conduction study reported : 1. 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 - If no side effects occur, consider inc reasing the dose to 2 capsules per night after one week. - Maintain communication about dosage an d effectiveness. - Update on symptoms and medication effe cts in three weeks. Review of Systems - General: No fever no chills - Neurological: No headaches no dizziness - Ear nose throat: No sore throat no hearing difficulty no ear pain - Cardiovascular: No syncope, no chest pain, no palpitations - Gastrointestinal: No nausea vomiting or diarrhea - Endocrine: No polyuria polydipsia no heat intolerance - Genitourinary: No dysuria , no blood in urine PFSH Medical History HPV in female Major depression, recurrent High cholesterol Surgical History Hx of colonoscopy H/O: hysterectomy Family History Maternal Aunt Breast CA Paternal Grandmother Ovarian ca Sister Colon cancer, Onset Age: 59 Sister Lung cancer Other Mental health disorder Substance use disorder Social History Household Members: None Housing: House Alcohol intake: current Alcohol intake frequency: a few times a week Patient Tobacco Use Status: Current everyday Tobacco user Tobacco use type: Cigarette Cigarette Packs Per Day: 1 Cigarettes Per Day: 20.0 Years Smoked: 40 e-Cigarette/Vaping Use: Never Used service: No Current occupational status: employed 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 Current occupational exposures/hazards: No Sexual orientation: Straight/Heterosexual Gender identity: Female Cognitive needs: No Hearing needs: No Vision needs: Yes Questionnaire Thrive Questionnaire Date Thrive assessed: 05/16/25 I am a: Patient What is your living situation today?: I have a steady place to live Within the past 12 months, did the food you bought not last and you didn't have the money to get more?: Never true Within the past 12 months, did you worry whether your food would run out before you got money to buy more?: Never true Do you have trouble paying for medicines?: No Do you have trouble getting transportation to medical appointments?: No Do you have trouble paying your heating and electricity bill?: No Do you have trouble taking care of your child, family member or friend?: No Do you have trouble with day-to-day activities such as bathing, preparing meals, shopping, managing finances, etc.?: No Are you currently unemployed and looking for a job?: No Are you interested in more education?: No Please select the resources that you would like help with: None Currently or been in a relationship where the following occur: I choose not to answer THRIVE Score: 0 MUSTAPHA-7 AMB Questionnaire MUSTAPHA-7 Date MUSTAPHA - 7 assessed: 05/16/25 Source: Developed by Drs. Delroy Enrique, Kalina Vicente, Lobo Garcia and colleagues, with an educational chey from [employer]. Physical exam (Primary Care) Tobacco/Smoking Status: Tobacco use Status Tobacco use date assessed 05/16/25 05/16/25 13:26 Patient Tobacco Use Status Current everyday Tobacco 05/16/25 13:26 Tobacco use type Cigarette 05/16/25 13:26 e-Cigarette/Vaping Use Never Used 05/16/25 13:26 Thrive Assessment: Date of Thrive Assessment Date Thrive assessed 05/16/25 05/16/25 13:26 Currently or been in a relationship where the following occur: I choose not to answer Telehealth Telehealth Telehealth Platform: [facility] Location of provider rendering services: practice address Location of patient: address on file Patient Identification confirmed using: Name, : Yes Telehealth method: video Patient verbally consented to treatment: Yes Patient verbally consented to billing insurance company: Yes Patient informed of any privacy concerns related to visit: Yes Minutes spent on Phone/Video with Pt.: 13 Coding Level of Care Code Tele Est Pt Level 3 (75486) Diagnoses Tibial neuropathy of both lower extremities G57.43 Assessment & Plan Assessment & Plan (1) Tibial neuropathy of both lower extremities: Code(s): G57.43 - Lesion of medial popliteal nerve, bilateral lower limbs Category: Medical Plan History of Present Illness The patient is a 64-year-old female presenting with a burning sensation in the feet. Burning sensation in the feet: - The patient has been experiencing a burning sensation in her feet, which is ongoing. - She has been taking Advil daily for overall joint pain and other aches. - To alleviate the burning sensation in her feet, she has been doing foot baths and using tennis balls and ice balls for massage. - Confirmatory tests indicate the presence of neuropathy in the feet. - Standing for prolonged periods, presumably due to her profession, may have contributed to the neuropathy. Nerve conduction study reported : 1. 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 - If no side effects occur, consider increasing the dose to 2 capsules per night after one week. - Maintain communication about dosage and effectiveness. - Update on symptoms and medication effects in three weeks. Medications: New gabapentin 200 mg (2 x 100 mg) PO BEDTIME 60 caps 0RF
== END 2025-07-10 11:10 | disposition home or self-care (01) ==
LOC: HO.HMCC 06:33
PROVIDERS: PCP Internal Medicine; Visit Provider Internal Medicine
DX: G57.43 Lesion of medial popliteal nerve, bilateral lower limbs (principal)

== ENCOUNTER 2025-07-15 08:56 | Outpatient (REF) | payer OTHER, SELFPAY ==
--- NOTE | ~2025-07-15 | MM_ITS ---
STUDY: DUAL ENERGY X-RAY ABSORPTIOMETRY / DXA REASON FOR EXAM: Female, 64 years old N95.1 - Menopausal and female climacteric states TECHNIQUE: Bone Mineral Density (BMD) measurements of the lumbar spine and left hip were obtained using [employer] COMPARISON: None FINDINGS: L1-L4 BMD: 1.130 g/cm2 L1-L4 T score: -0.4. This corresponds to Normal bone density. Left femoral neck BMD: 0.863 g/cm2 Left femoral neck T score: -1.3. This corresponds to osteopenia. Left total hip BMD: 1.005 g/cm2 Left total hip T score: 0.0. This corresponds to Normal bone density. FRAX score: 10 year risk of major osteoporotic fracture 8.5%, 10 year risk of hip fracture 1.3% MM/XR DEXA axial skeleton IMPRESSION: Osteopenia Reference Information: The T-score is the number of standard deviations above or below the standard which is normal for young adults at their peak bone mineral density. The World Health Organization (WHO) interprets the T-scores as follows: At or above -1 SD Normal bone density Between -1 and -2.5 SD Osteopenia At or below -2.5 SD Osteoporosis Electronically signed by: Keith Sequeira MD 07/16/2025 08:48 AM EDT
--- OUTSIDE RECORDS SUMMARY | 2025-07-15 10:13 | XMS_ITS | Clinical Summary ---
Author Organization [facility] Address [address] [id number] Phone Care Team Providers Care [employer] Assembler Name Role Phone Emir Quinones MD Primary Care Provider [phone] Medications atorvastatin calcium (ATORVASTATIN ORAL) Active Medication-Free [...] topic Medical Devices Not on file Insurance [facility] HMO POS [facility] [place] [address] [place] [address] [place] [address] [place] [address] [place] [address] [place] [address] [place] [address] [place] [address] [place] [address] [place] [address] [place] [address] [place] [address] [place] [address] [place] [address] HMO POS Care Teams [employer] Assembler Relationship Specialty Start Date End Date Emir Quinones MD PCP - General 10/26/17 Additional Source Comments The information contained in this document represents components of the legal health record. It is not the complete legal health record.[facility]
== END 2025-07-15 08:57 | disposition home or self-care (01) ==
LOC: HO.MAMMO 08:56
PROVIDERS: PCP Internal Medicine; Visit Provider Internal Medicine
DX: Z13.820 Encounter for screening for osteoporosis (principal); Z78.0 Asymptomatic menopausal state
CPT/HCPCS: 77080

== ENCOUNTER → 2025-07-15 09:15 | Outpatient (BNV) | payer OTHER, SELFPAY | PROVIDERS: PCP Internal Medicine; Visit Provider Radiology Body Imaging | DX: E28.39 Other primary ovarian failure (principal) | CPT/HCPCS: 77080 ==

== ENCOUNTER 2025-09-04 11:20 | Outpatient (REF) | payer MEDICARE, SELFPAY ==
[2025-09-04 15:46] LABS: Resp Syncy Virus RNA Qual PCR NEGATIVE (Negative); SARS COV2 PCR INHOUSE NEGATIVE (Negative)
== END 2025-09-04 11:21 | disposition home or self-care (01) ==
LOC: HO.LNP 11:20
PROVIDERS: PCP Internal Medicine; Visit Provider Physician Assistant Medical
DX: R09.89 Other specified symptoms and signs involving the circulatory and respiratory systems (principal); J02.9 Acute pharyngitis, unspecified; R51.9 Headache, unspecified; R05.9 Cough, unspecified; F17.210 Nicotine dependence, cigarettes, uncomplicated
CPT/HCPCS: 87637; 99212

== ENCOUNTER 2025-09-04 11:20 | Outpatient (AMB) | payer MEDICARE, MEDICAID, SELFPAY ==
[2025-09-04 11:22] VITALS: BP 110/86; PULSE 78; TEMP 36.8; O2SAT 97; BMI 25.7
--- NOTE | 2025-09-04 11:22 | MHC.OFFWIV ---
Intake Vital Signs 09/04/25 11:22 Height 5 ft 3 in Weight 145 lb BMI 25.7 BP 110/86 Blood Pressure Location Rt brachial Position Sitting Pulse 78 Pulse Source Pulse Oximeter Temp 98.2 F Temp Source Oral Pulse Oximetry (%) 97 Oxygen Delivery Method Room Air Intake Visit Reasons: EP Sore throat Intake Note: EP complains of sore throat, dry cough, mild chill and headache for the last 10 days. Patient Tobacco Use Status: Current everyday Tobacco user Allergies penicillin V Allergy (Unknown, Verified 09/04/25 11:30) anaphylaxis Do you need a note to return to daycare/school/sports/work: No HPI HPI Comments History of Present Illness Details History - The patient is a 64-year-old female presenting with a sore throat, ear pain, and cough. - The sore throat has persisted for 10 days, initially subsiding before returning. - Her throat has been swollen and has pain when she swallows. - Her cough has been dry and she has no congestion. - Symptoms include ear pain, headache, and cough, with no fever reported. - The patient has been taking Advil and using throat spray for relief. - Smoking history noted, potentially exacerbating symptoms. - She has no sick contacts, travel, CP, SOB, abd pain, n/v/d. Physical Exam General: Cooperative, healthy appearing, comfortable and no acute distress Orientation/consciousness: Patient oriented x3 Limitations: No limitations Head: Normal to inspection Ears: Hearing grossly normal bilaterally, external ears normal and TM's normal bilaterally. Nose: Normal external nose present, normal nares present, and no nasal discharge present. Face and sinus: Sinuses nontender to palpation. Mouth: Normal oral and palatal mucosa present and moist mucous membranes noted. Throat: Tonsils normal. Uvula is midline. Posterior oropharynx with erythema and swelling noted, no exudates. Eyes: Appearance normal, both eyes and all related structures Neck: Normal visual inspection, full ROM. No lymphadenopathy noted. Respiratory: Clear to auscultation bilaterally. Normal respiratory effort, able to speak in complete sentences. No respiratory distress, not tachypneic, no tripod positioning and no use of accessory muscles. Reports cough. Cardiovascular: Regular rate and rhythm. Normal S1 and S2 Skin: No rashes or lesions noted Patient was informed and verbally consented to the use of an ambient scribe for clinic note documentation during this visit [facility] Medical History (Updated 07/10/25 @ 12:22 by Susie Damian PA-C) Hyperplastic colon polyp Nicotine dependence, cigarettes, uncomplicated HPV in female Major depression, recurrent High cholesterol Surgical History (Updated 07/10/25 @ 12:22 by Susie Damian PA-C) History of cervical biopsy History of hysterectomy History of colonoscopy History of blepharoplasty Family History Maternal Aunt Breast CA Paternal Grandmother Ovarian ca Sister Colon cancer, Onset Age: 59 Sister Lung cancer Other Mental health disorder Substance use disorder Social History Household Members: None Housing: House Alcohol intake: current Alcohol intake frequency: a few times a week Patient Tobacco Use Status: Current everyday Tobacco user Tobacco use type: Cigarette Cigarette Packs Per Day: 1 Cigarettes Per Day: 20.0 Years Smoked: 40 e-Cigarette/Vaping Use: Never Used service: No Current occupational status: employed 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 Current occupational exposures/hazards: No Sexual orientation: Straight/Heterosexual Gender identity: Female Cognitive needs: No Hearing needs: No Vision needs: Yes Review of Systems Const All systems reviewed & are unremarkable except as noted in HPI and below Physical Exam Vital Signs: Last Vital Signs Temp 98.2 F 09/04/25 11:22 Pulse 78 09/04/25 11:22 BP 110/86 09/04/25 11:22 Pulse Ox 97 09/04/25 11:22 Oxygen Delivery Method Room Air 09/04/25 11:22 BMI result Body Mass Index 25.7 Assessment & Plan Assessment & Plan (1) Sore throat: Code(s): J02.9 - Acute pharyngitis, unspecified Plan Most likely strep vs Rapid strep was negative plan - Diet as tolerated - Antibiotics prescribed due to significant oropharyngeal erythema and swelling despite negative strep test. - Continued use of Tylenol and Motrin advised for pain relief. - Saltwater gargles recommended for symptomatic relief. - Smoking cessation recommended for health improvement, though not discussed during the visit. Orders: Orders SARS-CoV2/FLU/RSV Today R09.89 - Other specified symptoms and signs involving the circulatory and respiratory systems AMB Rapid Strep Screen Today J02.9 - Acute pharyngitis, unspecified Medications: New azithromycin For 250 mg dose pack: take 500 mg today (day 1), then 250 mg for 4 days (days 2-5) PO 6 tabs 0RF Coding Level of Care Code Est Pt Level 3 (82502) Diagnoses Sore throat J02.9
== END 2025-09-04 12:27 | disposition home or self-care (01) ==
PROVIDERS: PCP Internal Medicine; Visit Provider Physician Assistant Medical
DX: J02.9 Acute pharyngitis, unspecified (principal)

== ENCOUNTER 2025-10-09 08:12 | Outpatient (AMB) | payer MEDICARE, SELFPAY ==
--- NOTE | 2025-10-09 10:12 | A.OFFPC_ITS ---
Intake Visit Reasons: f/u - gabapentin Allergies penicillin V Allergy (Unknown, Verified 09/04/25 11:30) anaphylaxis Medication List - Last Reconciled 10/09/25 by Hannah Baires MD azithromycin For 250 mg dose pack: take 500 mg today (day 1), then 250 mg for 4 days (days 2-5) PO coenzyme Q10 100 mg PO DAILY 90 days cyanocobalamin (vitamin B-12) 1,000 mcg PO DAILY 90 days gabapentin 200 mg (2 x 100 mg) PO BEDTIME ketoconazole 2% 1 appl topical DAILY rosuvastatin 5 mg PO DAILY 90 days Tobacco use date assessed: 05/16/25 Dental Screening Dental Screen Date: 05/16/25 HPI HPI Comments History of Present Illness Details History of Present Illness The patient is a 65 year old female presenting for follow-up on peripheral neuropathy treatment and review of diagnostic results. Peripheral neuropathy: - A nerve conduction study in June revealed bilateral distal tibial axonal neuropathy in the feet and mild right peroneal neuropathy across the knee. - She was started on gabapentin 100 mg a t night, which she reports is working and has noticed a difference. - She is currently taking one capsule at night. Osteopenia: - A bone density scan showed osteopenia, indicating her bones are weaker than expected for her age but it is not osteoporosis. - Her T-score was -1.3. Impaired fasting glucose: - The patient has a history of impaired fasting glucose, with a fasting blood sugar of 100 in April of this year. Nicotine dependence: - She continues to smoke but has cut ernesto k from 20 to about 15 cigarettes per day. - She expresses a desire to quit and ack nowledges that it is difficult, especially when she is bored and home by herself. - She reports smoking less when she is b usy and her mind is occupied. - She has tried nicotine patches in the past but has never tried Chantix. Medical History: - Peripheral neuropathy - Osteopenia - Impaired fasting glucose Social History: - Tobacco Use: The patient is a current smoker, using about 15 cigarettes a day, which is a reduction from a previous 20 per day. - Employment: She is still working. - Hobbies: She plays pool. Diagnostic Results: - Nerve Conduction Study (June): Re sults showed bilateral distal tibial axonal neuropathy in the feet and mild right peroneal neuropathy across the knee. - Bone Density Scan: Results show osteop enia with a T-score of -1.3. - Labs (April): Fasting blood sugar was 1 00. - Vitamin D: Level is good. [facility] Medical History Hyperplastic colon polyp Nicotine dependence, cigarettes, uncomplicated HPV in female Major depression, recurrent High cholesterol Surgical History History of cervical biopsy History of hysterectomy History of colonoscopy History of blepharoplasty Family History Maternal Aunt Breast CA Paternal Grandmother Ovarian ca Sister Colon cancer, Onset Age: 59 Sister Lung cancer Other Mental health disorder Substance use disorder Social History Household Members: None Housing: House Alcohol intake: current Alcohol intake frequency: a few times a week Patient Tobacco Use Status: Current everyday Tobacco user Tobacco use type: Cigarette Cigarette Packs Per Day: 1 Cigarettes Per Day: 20.0 Years Smoked: 40 Packs Per Year: 40 Packs per year/per ci.00 e-Cigarette/Vaping Use: Never Used service: No Current occupational status: employed 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 Delroy Enrique, Kalina Vicente, Lobo Garcia and colleagues, with an educational chey from [employer]. Review of Systems Narrative Review of Systems - General: No fever no chills - Neurological: No headaches no dizziness - Ear nose throat: No sore throat no hearing difficulty no ear pain - Cardiovascular: No syncope, no chest pain, no palpitations - Gastrointestinal: No nausea vomiting or diarrhea - Endocrine: No polyuria polydipsia no heat intolerance - Genitourinary: No dysuria , no blood in urine Physical exam (Primary Care) Tobacco/Smoking Status: Tobacco use Status Tobacco use date assessed 05/16/25 10/09/25 10:12 Patient Tobacco Use Status Current everyday Tobacco 10/09/25 10:12 Tobacco use type Cigarette 10/09/25 10:12 e-Cigarette/Vaping Use Never Used 10/09/25 10:12 Thrive Assessment: Date of Thrive Assessment Date Thrive assessed 05/16/25 10/09/25 10:12 Narrative Telehealth Telehealth Telehealth Platform: [employer] Location of provider rendering services: practice address Location of patient: address on file Patient Identification confirmed using: Name, : Yes Telehealth method: video Patient verbally consented to treatment: Yes Patient verbally consented to billing insurance company: Yes Patient informed of any privacy concerns related to visit: Yes Minutes spent on Phone/Video with Pt.: 13 Coding Level of Care Code Tele Est Pt Level 3 (66177) Diagnoses Tibial neuropathy of both lower extremities G57.43 Nicotine dependence, cigarettes, uncomplicated F17.210 Assessment & Plan Assessment & Plan (1) Tibial neuropathy of both lower extremities: Code(s): G57.43 - Lesion of medial popliteal nerve, bilateral lower limbs Category: Medical (2) Nicotine dependence, cigarettes, uncomplicated: Code(s): F17.210 - Nicotine dependence, cigarettes, uncomplicated Category: Medical Plan Problem List - Peripheral neuropathy - Osteopenia - Nicotine dependence - Impaired fasting glucose - Preventative care: Bone density screening Plan - A prescription for gabapentin 100 mg capsules will be sent to the pharmacy for management of peripheral neuropathy. - For osteopenia, the patient was advised to engage in weight-bearing exercises and consume calcium-rich foods, avoiding calcium supplements due to the risk of kidney stones. - The patient declined pharmacological treatment for osteopenia at this time. - A repeat bone density scan is planned in two years to monitor her condition. - For smoking cessation, the patient has agreed to try Chantix. - She was counseled on the potential side effects of Chantix, such as nightmares and vivid dreams. - A follow-up appointment is scheduled in three weeks to assess her response to Chantix. - The patient has a routine follow-up appointment scheduled in April. Medications: New varenicline tartrate (Chantix Starting Month Box) PO PER PKG DIR 53 ea 0RF F17.200 - Nicotine dependence, unspecified, uncomplicated Changed From gabapentin 200 mg (2 x 100 mg) PO BEDTIME 60 caps 0RF To gabapentin 100 mg PO BEDTIME 90 caps 1RF Discontinued azithromycin Discontinued Reason: Doctor's Order For 250 mg dose pack: take 500 mg today (day 1), then 250 mg for 4 days (days 2-5) PO 6 tabs 0RF
== END 2025-10-09 12:00 | disposition home or self-care (01) ==
LOC: HO.HMCC 08:12
PROVIDERS: PCP Internal Medicine; Visit Provider Internal Medicine
DX: G57.43 Lesion of medial popliteal nerve, bilateral lower limbs (principal); F17.210 Nicotine dependence, cigarettes, uncomplicated